=== PATIENT | male | born 1935 | race Caucasian/White ===

== ENCOUNTER 2016-06-01 18:04 | Inpatient (IN) | payer OTHER ==
[~2016-06-01] VITALS: Ht 175.3 cm; Wt 77.2 kg
[~2016-06-01 18:04] MED LIST: AMANTADINE100 MG PO; ASPIRIN ADULT L81 M1 PO; CARDURA8 MG PO; CHOLESTYRAMINE4 GM; CITALOPRAM HYDR20 MG PO; FLORINEF0.1 MG PO; HYDROCHLOROTHIA25 MG PO; KEFLEX500 M1 PO; KLOR-CON M2020 MEQ PO; LIPITOR80 MG PO; LOPRESSOR25 MG PO; LOPRESSOR50 MG PO; METAMUCIL EQUIV1 PKT PO; NITROSTAT0.4 MG SL; OMEGA 31000 MG PO; ROPINIROLE HCL1 MG PO; RYTARY ER; RYTARY PO; TAMSULOSIN HCL0.4 MG PO; TROSPIUM CHLORI20 MG PO; VITAMIN D-31000 UNIT PO
--- NOTE | 2016-06-01 19:52 | ED ORDER SUMMARY ---
..... Patient: URBANO CHANDLER OrderSheet [facility] VisitID: [id number] [place] [address] 80y, M Registration Date/Time: 06/01/2016 ORDER SHEET Weight: 77.1 kg (measured) Allergies: No Known Drug Allergy GENERAL ORDERS: Blood Culture (No) (N/A) Urgent (18:11 06/01/2016 Gabriel JUÁREZ) (18:14 Isra R.N.) Cue Selector (Continuous) (18:12 06/01/2016 Gabriel JUÁREZ) (18:14 Isra R.N.) Chest 1V Urgent (18:12 06/01/2016 Gabriel JUÁREZ) (18:14 Isra R.N.) Cardiac Panel Stat (18:13 06/01/2016 Gabriel JUÁREZ) (18:14 Isra R.N.) UA-Culture if indicated Urgent (18:13 06/01/2016 Gabriel JUÁREZ) (18:14 Isra R.N.) Oxygen (2 L/min) (NC) (18:13 06/01/2016 Gabriel JUÁREZ) (18:14 Isra R.N.) Pulse oximeter (18:13 06/01/2016 Gabriel JUÁREZ) (18:14 Isra R.N.) EKG - ER Stat (18:13 06/01/2016 Gabriel JUÁREZ) (18:24 LTapper) Trevino Catheter (18:13 06/01/2016 Gabriel JUÁREZ) (18:14 Isra R.N.) Lactate, Serum Urgent (19:04 06/01/2016 Gabriel JUÁREZ) (19:06 LTapper) MEDICATION ORDERS: Ibuprofen PO 800 mg (NOW) (20:53 06/01/2016 Isra R.NMaxine verbal order read back to Gabriel JUÁREZ) (20:54 Isra R.N.) IV FLUIDS: IV NS : initial bolus 500 mL (1000 mL/hr), then 250 mL/hr for 4h (NOW); Routine (18:12 06/01/2016 Gabriel JUÁREZ) (18:28 Isra Salgado) Levaquin IV 750 mg/150 mL (NOW) (18:13 06/01/2016 Gabriel JUÁREZ) (18:49 Isra Salgado) IV Saline Lock (18:31 06/01/2016 Isra Salgado verbal order read back to Gabriel JUÁREZ) (18:31 Isra Salgado) ORDER SHEET NOTES: [Electronically signed by Chris Granado R.N. (22:49 06/01/2016)] [Electronically signed by Art Adkins MD (15:18 06/02/2016)] [Electronically locked/signed by Chris Granado R.N. (22:49 06/01/2016)]
--- NOTE | 2016-06-01 19:52 | ED NURSING NOTES ---
Clinical Report - Nurses [facility] [address] [place] [address] 06/01/2016 18:04 [id number] Triage time 18:03 Jun 01 2016. Acuity: LEVEL 3. Chief Complaint: FEVER and CHILLS. Alert. JAYA COMA SCORE: [place] Coma Scale: 15- eyes open spontaneously (4); best verbal response- oriented x 4 (5); best motor response- obeys commands (6). Jaya Coma Scale: 15- eyes open spontaneously (4); best verbal response- oriented x 4 (5); best motor response- obeys commands (6). --18:15 Chris Granado R.N. 18:06 06/01/16. BP: 107/58. HR: 95. RR: 24. O2 saturation: 91% on room air. Temp: 102 F (oral). Pain level now: 0/10. --18:15 Chris Granado R.N. Weight: 77.1 kg measured. Height/Length: 69 inches Estimated. BMI: 25.1. --18:09 Chris Granado R.N. Medications Amantadine HCl Oral (Capsule 100 mg) 1 capsule, 2x a day. Aspirin Oral (Tablet 81 mg) 1 tablet, daily. Atorvastatin Calcium Oral (Tablet 80 mg) 1 tablet, daily. Cholestyramine Oral (Packet 4 gm) 1 packet, daily. Citalopram Hydrobromide Oral (Tablet 20 mg) 1 tablet, daily. Hydrochlorothiazide Oral (Tablet 25 mg) 1 tablet, daily. Metoprolol Tartrate Oral (Tablet 50 mg) 1 tablet, 2 times daily. --18:18 Chris Granado R.N. Nitroglycerin Sublingual (Tablet Sublingual 0.4 mg) 1 tablet, 3x a day as needed. ROPINIRole HCl Oral (Tablet 2 mg) 1 tablet, 5 x daily. Rytary 36.25-145 mg. Tamsulosin HCl Oral (Capsule 0.4 mg) 1 capsule, daily. Trospium Chloride Oral (Tablet 20 mg) 1 tablet, twice daily. --18:18 Chris Granado R.N. Allergies No Known Drug Allergy. --18:18 Chris Granado R.N. History Arrived by EMS. Historian: patient. Unaccompanied. ( Fever associated with anuria, tachycardia, tachypnea. Recent hx UTI. CODE SEPSIS CALLED). This started today. Treatment SAW HANDLE ASSEMBLER: (EMS started IV (LAC) in the field and started IV fluids.). --18:15 Chris Granado R.N. PROBLEMS: CVA - Cerebrovascular Accident. Prior Injury, Same Area. Pressure Ulcer. Wound to rt foot . Constipation. Hypovolemia. Hypotension. Syncope. Renal Insufficiency. UTI - Urinary Tract Infection. Urinary Retention. Immunizations. Hypercholesterolemia. Parkinson's Disease. Hypertension. --18:16 Chris Granado R.N. 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 Vasectomy. --18:16 Chris Granado R.N. Interventions ID band on patient. To treatment room. --18:15 Chris Granado R.N. NURSING PROGRESS NOTES 18:20. Patient ID band checked for patient name, birthdate and medical record number: patient confirmed. Catheterized urine collected with return of yellow-colored cloudy urine, sediment noted; sample sent to lab for urinalysis and culture. Specimen labeled in the presence of the patient. --18:26 Chris Granado R.N. 18:03 06/01/2016 Site #1 started prior to arrival by EMS via IV in the left antecubital space with an 18g angiocath ([facility] START BY ems). --18:28 Chris Granado R.N. <<IVANKEN ENTRY-- 18:03 06/01/2016 Started bag #1 1000 mL IV Fluids IV NS (Saline); at 125 mL/hr over 8 hour(s) via site #1 via IV pump. Allergies verified and confirmed 5 rights. IV patency established. IV site checked: no pain, redness, or swelling. IV flushed thoroughly pre- and post-medication administration. --18:28 Chris Granado R.N. --END STRIKE>> Correction. --20:56 Chris Granado R.N. 18:15 06/01/16. 14 fr diaz catheter placed. During procedure hand hygiene observed and sterile equipment and aseptic technique used. Return of 450 mL yellow-colored cloudy urine, sediment noted; attached to bedside drainage bag positioned below the bladder. He tolerated procedure well. --18:26 Chris Granado R.N. 18:15 06/01/2016 Site #2 started via IV in the right forearm with an 18g angiocath, with aseptic technique and good blood return; one attempt. Blood drawn: rainbow set. Labeled in the presence of the patient and sent to the lab. Saline lock flushed with 10 mL saline (by AFUA Metcalf). --18:30 Chris Granado R.N. EKG time: (18:17). EKG was performed by a tech and shown to the ED physician. --18:51 Hannah Sung 18:35 06/01/16. ( Blood Culture x 1 and Lactate drawn by Junior Systems Engineer.). --18:55 Chris Granado R.N. 18:39 06/01/2016 Started 750 mg of Levaquin (Levofloxacin) IVPB in bag #1 150 mL; at 100 mL/hr over 90 minute(s) via site #1 via IV pump. Allergies verified and confirmed 5 rights. IV patency established. IV site checked: no pain, redness, or swelling. IV flushed thoroughly pre- and post-medication administration. --18:49 Chris Granado R.N. 19:15 06/01/16. BP: 134/62. HR: 92 (regular and normal rate). RR: 18. O2 saturation: 99% on nasal cannula at 2 liters/minute. Pain level now: 0/10. --19:17 Chris Granado R.N. <<STRICKEN ENTRY-- 18:03 06/01/2016 Started bag #1 1000 IV Fluids IV NS (Saline); at 250 mL/hr over 2 hour(s) via site #1 via IV pump. Allergies verified and confirmed 5 rights. IV patency established. IV site checked: no pain, redness, or swelling. IV flushed thoroughly pre- and post-medication administration. --20:56 Chris Granado R.N. --END STRIKE>> Correction. --20:57 Chris Granado R.N. 18:03 06/01/2016 Started bag #1 1000 mL IV Fluids IV NS (Saline); at 250 mL/hr over 2 hour(s) via site #1 via IV pump. Allergies verified and confirmed 5 rights. IV patency established. IV site checked: no pain, redness, or swelling. IV flushed thoroughly pre- and post-medication administration (Medics had infused 500 mL of IV bag # 1 in field). --20:57 Chris Granado R.N. 20:07 06/01/2016 IV Fluids IV NS Bag Change: bag #1 infused. Total amount infused: 1000. STARTED bag #2 (250 mL) at 250 mL/hr via IV pump. Confirmed 5 rights. IV patency established. IV site checked: no pain, redness, or swelling. IV flushed thoroughly. --22:07 Chris Granado R.N. 20:16 06/01/2016 Levaquin IVPB Discontinued: bag #1 infused. Total amount infused: 150mL mL. IV patency established. IV site checked: no pain, redness, or swelling. IV flushed thoroughly. (Levaquin 750 mg). --20:26 Chris Granado R.N. 20:30 06/01/2016 Site #1 removed. Catheter intact. Pressure dressing, bandaid and bandage applied (site infiltrated probably due to pt's shakiness/Parkinsons and the IV solution was moved to site #2). --22:42 Chris Granado R.N. 20:39 06/01/2016 Ibuprofen PO 800 mg given. Allergies verified and confirmed 5 rights. --20:54 Chris Granado R.N. <<STRICKEN ENTRY-- 21:00 06/01/2016 Site #1 removed. Catheter intact. Pressure dressing, bandaid and bandage applied (site infiltrated probably due to pt's shakiness/Parkinsons and the IV solution was moved to site #2). --22:18 Chris Granado R.N. --END STRIKE>> Correction. --22:41 Chris Granado R.N. 21:00 06/01/2016 Site #[address] upon admission; no pain and no signs of infection or infiltration. No blood return present (IV infusing in this site). --22:40 Chris Granado R.N. 21:00 06/01/2016 IV Fluids IV NS Continued: upon discharge at the rate of 250 mL/hr. 750 mL remaining bag #2. IV patency established. IV site checked: no pain, redness, or swelling. IV flushed thoroughly. --22:39 Chris Granado R.N. <<STRICKEN ENTRY-- 21:30 06/01/2016 Site #[address] upon admission; no pain and no signs of infection or infiltration. No blood return present (IV infusing in this site). --22:19 Chris Granado R.N. --END STRIKE>> Correction. --22:40 Chris Granado R.N. <<STRICKEN ENTRY-- 21:30 06/01/2016 IV Fluids IV NS Continued: upon discharge at the rate of 250 mL/hr. 750 mL remaining bag #2. IV patency established. IV site checked: no pain, redness, or swelling. IV flushed thoroughly. --22:16 Chris Granado R.N. --END STRIKE>> Correction. --22:39 Chris Granado R.N. <<STRICKEN ENTRY-- 22:41 06/01/2016 Site #1 removed. Catheter intact. Pressure dressing, bandaid and bandage applied (site infiltrated probably due to pt's shakiness/Parkinsons and the IV solution was moved to site #2). --22:41 Chris Granado R.N. --END STRIKE>> Correction. --22:42 Chris Granado R.N. 20:00 06/01/16. BP: 108/59. HR: 89. RR: 24. O2 saturation: 98% on nasal cannula at 2 liters/minute. Pain level now: 0/10. --22:45 Chris Granado R.N. 20:30 06/01/16. BP: 119/67. HR: 90. RR: 20. O2 saturation: 98%. Pain level now: 0/10. --22:48 Chris Granado R.N. DISPOSITION / DISCHARGE Departure time: 2100. --22:35 Chris Granado R.N. 20:45 06/01/16. BP: 109/66. HR: 92. RR: 20. O2 saturation: 98% on nasal cannula at 2 liters/minute. Temp: 99.9 F (oral). Pain level now: 0/10. --22:37 Chris Granado R.N. 21:00. Admitted to Acute Care. Transported via stretcher by nurse with IV and O2. Report was given to a nurse via a phone call. All questions were answered. Report was acknowledged. (AFUA Box). --22:38 Chris Granado R.N. Locked/Released at 06/01/2016 22:49 by Chris Granado R.N.
--- NOTE | 2016-06-01 19:52 | ED CLINICAL REPORT ---
Clinical Report - Physicians/Mid Levels [facility] [address] [place] [address] 06/01/2016 18:04 Patient: URBANO CHANDLER Time Seen: 18:10 Jun 01 2016. Arrived- By ambulance. Historian- patient and EMS personnel. CPT: ER phys charges level 5 plus (#[id number]). EKG interpretation (#[id number]). HISTORY OF PRESENT ILLNESS Chief Complaint: Code Sepsis. ( snf staff states the patient has been febrile today and worry about sepsis. He is more confused than normal. He has had some hypoxia and tachycardia. They note there is been no urine output today. That the patient had been treated for a UTI about a month ago. Patient indicates he has a slight cough. No abdominal pain no diarrhea. One episode of vomiting. No rash and no new areas of pain.). This started today and is still present. At its maximum, severity described as moderate. When seen in the E.D., severity described as moderate. Modifying factors. Not worsened by anything. Not relieved by anything. The patient has had fatigue, decreased urine output and weakness. Similar symptoms previously: None. Recent medical care: Not recently seen/assessed. REVIEW OF SYSTEMS The patient has had fever, a cough, chills, difficulty with urination (low output), and weakness. No sore throat or throat, sinus drainage, nasal congestion or difficulty breathing. No chest pain, abdominal pain, nausea, vomiting or diarrhea. No black stools, bloody stools, skin rash, back pain or blackouts. No diabetic symptoms or easy bruising. The patient has had difficulty with ambulation. He has had difficulty walking. All systems otherwise negative, except as recorded above. PAST HISTORY CVA - Cerebrovascular Accident. Prior Injury, Same Area. Pressure Ulcer. Wound to rt foot . Constipation. Hypovolemia. Hypotension. Syncope. Renal Insufficiency. UTI - Urinary Tract Infection. Urinary Retention. Immunizations. Hypercholesterolemia. Parkinson's Disease. Hypertension. 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 Vasectomy. Medications: Nitroglycerin Sublingual (Tablet Sublingual 0.4 mg) 1 tablet, 3x a day as needed. ROPINIRole HCl Oral (Tablet 2 mg) 1 tablet, 5 x daily. Rytary 36.25-145 mg. Tamsulosin HCl Oral (Capsule 0.4 mg) 1 capsule, daily. Trospium Chloride Oral (Tablet 20 mg) 1 tablet, twice daily. Amantadine HCl Oral (Capsule 100 mg) 1 capsule, 2x a day. Aspirin Oral (Tablet 81 mg) 1 tablet, daily. Atorvastatin Calcium Oral (Tablet 80 mg) 1 tablet, daily. Cholestyramine Oral (Packet 4 gm) 1 packet, daily. Citalopram Hydrobromide Oral (Tablet 20 mg) 1 tablet, daily. Hydrochlorothiazide Oral (Tablet 25 mg) 1 tablet, daily. Metoprolol Tartrate Oral (Tablet 50 mg) 1 tablet, 2 times daily. Allergies: No Known Drug Allergy. SOCIAL HISTORY No alcohol use or drug use. ADDITIONAL NOTES The nursing notes have been reviewed. PHYSICAL EXAM Vital Signs: 06/01/2016 18:06 BP: 107/58. HR: 95. RR: 24. O2 saturation: 91%. Temp: 102 F. Pain level now: 0/10. Appearance: Alert. No acute distress. Lethargic. Eyes: Pupils equal, round and reactive to light. Pale conjunctivae. Eyes normal inspection. ENT: Ears normal. Nose normal. Dry mucous membranes present. Pharynx normal. Neck: Normal inspection. Neck supple. No meningeal signs. CVS: Normal heart rate and rhythm. 2/6 systolic ejection murmur. Pulses normal. Respiratory: No respiratory distress. Rales in the left lung base posteriorly. Chest nontender. Abdomen: No visible injury. Soft and nontender. Bowel sounds normal. Back: Normal inspection. Skin: Skin warm. Normal skin color. No rash. Extremities: Extremities exhibit normal ROM. No lower extremity edema. Neuro: No motor deficit. No sensory deficit. Reflexes normal. LABS, X-RAYS, AND EKG EKG: Normal sinus rhythm. Normal P waves. Normal QRS complex. Normal axis. Normal ST and T waves. The study has been interpreted contemporaneously. The study has been independently viewed by me. The EKG appears to be a good tracing. Chest X-ray: (CABG changes. Question of retrocardiac infiltrate.). Views: AP (portable). Technique: good. The X-rays were independently viewed by me and interpreted contemporaneously by me. Laboratory Tests: UA-Culture if indicated: (ALANNA: 06/01/2016 18:24) ( MsgRcvd 06/01/2016 18:58) Final results Test Result Flag Units (Reference) URINE COLOR YELLOW URINE APPEARANCE SL CLOUDY URINE GLUCOSE NEGATIVE (NEGATIVE) URINE BILIRUBIN NEGATIVE (NEGATIVE) URINE KETONE NEGATIVE (NEGATIVE) URINE SPECIFIC GRAVITY 1.020 (1.010-1.030) URINE PH 6.5 (5.0-8.0) URINE PROTEIN 1+ (NEGATIVE) URINE UROBILINOGEN 1.0 EU/dL (0.2-1.0) URINE NITRITE NEGATIVE (NEGATIVE) URINE BLOOD 2+ (NEGATIVE) URINE LEUK ESTERASE POSITIVE (NEGATIVE) URINE RBC NONE SEEN rbc/hpf (0-1) URINE WBC >100 wbc/hpf (0-1) URINE EPITHELIAL CELLS RARE EPI/hpf (0-5) URINE BACTERIA MANY (4+) (NONE SEEN) URINE COMMENT CULTURE INDICATED URINE CULTURES ARE SET-UP BASED ON THE FOLLOWING CRITERIA:POSITIVE NITRITEPOSITIVE LEUKOCYTE ESTERASEGREATER THAN 10 WHITE BLOOD CELLSMODERATE (2+) OR GREATER BACTERIA CBC w Diff: (ALANNA: 06/01/2016 18:15) ( MsgRcvd 06/01/2016 18:32) Final results Test Result Flag Units (Reference) WHITE BLOOD COUNT 13.9 H K/uL (4.5-11.5) RED BLOOD COUNT 3.80 L M/uL (4.50-5.90) HEMOGLOBIN 11.4 L gm/dL (13.5-17.5) HEMATOCRIT 34.6 L % (41.0-53.0) MEAN CELL VOLUME 91 fL (80-100) MEAN CORPUSCULAR HGB 30 pg (26-34) MEAN CORPUSCULAR HGB CONC 33 g/dL (31-37) RED CELL DISTRIBUTION WIDTH 16.0 H % (11.6-14.8) PLATELET COUNT 101 L K/uL (150-400) NEUTROPHIL % 90.3 H % (50-75) LYMPH % 4.8 L % (25-40) MONO % 4.8 % (3-14) EOSINOPHIL % 0 % (0-4) BASOPHIL % 0.1 % (0-2) Lactate, Serum: (ALANNA: 06/01/2016 18:15) ( MsgRcvd 06/01/2016 19:40) Final results Test Result Flag Units (Reference) LACTIC ACID 1.2 mmol/L (0.4-2.0) CHEM 13 PANEL: (ALANNA: 06/01/2016 18:15) ( MsgRcvd 06/01/2016 19:00) Final results Test Result Flag Units (Reference) GLUCOSE 140 H mg/dL (70-110) BUN 16 mg/dL (7-18) CREATININE 1.1 mg/dL (0.6-1.3) Estimated GFR >60 mL/min Estimated GFR- >60 mL/min Note: Persistent reduction over 3 months in eGFR<60 mL/min/1.73 m2 defines CKD. Patients with eGFR values>=60 mL/min/1.73 m2 may also have CKD if evidence ofpersistent proteinuria. Additional information may be foundat www.kidney.org. SODIUM 140 mmol/L (136-145) POTASSIUM 3.2 L mmol/L (3.5-5.1) CHLORIDE 103 mmol/L (98-107) CARBON DIOXIDE 30 mmol/L (21-32) CALCIUM 8.1 L mg/dL (8.5-10.1) TOTAL PROTEIN 6.3 L g/dL (6.4-8.2) ALBUMIN 2.6 L g/dL (3.3-5.0) BILIRUBIN, TOTAL 1.2 H mg/dL (0.0-1.0) ALKALINE PHOSPHATASE 72 U/L (46-116) AST (SGOT) 13 L U/L (15-37) ALT (SGPT) 22 U/L (12-78) MAGNESIUM 1.5 L mg/dL (1.8-2.4) CPK 60 U/L (24-260) TROPONIN I 0.06 ng/mL (0.00-1.5) TROPONIN REFERENCE RANGE:<0.1 NEGATIVE0.1-1.5 INDETERMINANT>1.5 POSITIVE . PROGRESS AND PROCEDURES Course of Care: IV NS BC times 2 Levaquin 750 mg IV. Discussed case with on-call health care provider, (Isabel). Reviewed test results. Agreed upon treatment plan. Health care provider will see patient in hospital. Patient/family counseled. Old medical records ordered. Disposition orders written. Disposition: Admitted to Acute Care. CLINICAL IMPRESSION Pneumonia UTI with early sepsis Dehydration. INSTRUCTIONS Your Current Medications: CONTINUE TAKING THE FOLLOWING MEDICATIONS: Amantadine HCl Oral : Capsule 100 mg, 1 capsule 2x a day. Aspirin Oral : Tablet 81 mg, 1 tablet daily. Atorvastatin Calcium Oral : Tablet 80 mg, 1 tablet daily. Cholestyramine Oral : Packet 4 gm, 1 packet daily. Citalopram Hydrobromide Oral : Tablet 20 mg, 1 tablet daily. Hydrochlorothiazide Oral : Tablet 25 mg, 1 tablet daily. Metoprolol Tartrate Oral : Tablet 50 mg, 1 tablet 2 times daily. Nitroglycerin Sublingual : Tablet Sublingual 0.4 mg, 1 tablet 3x a day, prn. ROPINIRole HCl Oral : Tablet 2 mg, 1 tablet 5 x daily. Rytary* : 36.25-145 mg. Tamsulosin HCl Oral : Capsule 0.4 mg, 1 capsule daily. Trospium Chloride Oral : Tablet 20 mg, 1 tablet twice daily. Understanding of the discharge instructions verbalized by patient. (Electronically signed by Art Adkins MD 06/02/2016 15:18)
--- NOTE | 2016-06-01 19:52 | ED ORDER SUMMARY ---
..... Patient: URBANO CHANDLER OrderSheet [facility] VisitID: [id number] [place] [address] 80y, M Registration Date/Time: 06/01/2016 ORDER SHEET Weight: 77.1 kg (measured) Allergies: No Known Drug Allergy GENERAL ORDERS: Blood Culture (No) (N/A) Urgent (18:11 06/01/2016 Gabriel JUÁREZ) (18:14 Isra R.N.) General Manager Food (Continuous) (18:12 06/01/2016 Gabriel JUÁREZ) (18:14 Isra R.N.) Chest 1V Urgent (18:12 06/01/2016 Gabriel JUÁREZ) (18:14 Isra R.N.) Cardiac Panel Stat (18:13 06/01/2016 Gabriel JUÁREZ) (18:14 Isra R.N.) UA-Culture if indicated Urgent (18:13 06/01/2016 Gabriel JUÁREZ) (18:14 Isra R.N.) Oxygen (2 L/min) (NC) (18:13 06/01/2016 Gabriel JUÁREZ) (18:14 Isra R.N.) Pulse oximeter (18:13 06/01/2016 Gabriel JUÁREZ) (18:14 Isra R.N.) EKG - ER Stat (18:13 06/01/2016 Gabriel JUÁREZ) (18:24 LTapper) Trevino Catheter (18:13 06/01/2016 Gabriel JUÁREZ) (18:14 Isra R.N.) Lactate, Serum Urgent (19:04 06/01/2016 Gabriel JUÁREZ) (19:06 LTapper) MEDICATION ORDERS: Ibuprofen PO 800 mg (NOW) (20:53 06/01/2016 Isra R.NMaxine verbal order read back to Gabriel JUÁREZ) (20:54 Isra R.N.) IV FLUIDS: IV NS : initial bolus 500 mL (1000 mL/hr), then 250 mL/hr for 4h (NOW); Routine (18:12 06/01/2016 Gabriel JUÁREZ) (18:28 Isra Salgado) Levaquin IV 750 mg/150 mL (NOW) (18:13 06/01/2016 Gabriel JUÁREZ) (18:49 Isra Salgado) IV Saline Lock (18:31 06/01/2016 Isra Salgado verbal order read back to Gabriel JUÁREZ) (18:31 Isra Salgado) ORDER SHEET NOTES: [Electronically signed by Chris Granado R.N. (22:49 06/01/2016)] [Electronically signed by Art Adkins MD (15:18 06/02/2016)] [Electronically locked/signed by Chris Granado R.N. (22:49 06/01/2016)]
--- NOTE | 2016-06-01 20:05 | DIAGNOSTIC IMAGING REPORT ---
PROCEDURE: XR CHEST 1 VIEW INDICATION: FEVER, initial encounter TECHNIQUE: Portable AP view 06:33 p.m. COMPARISON: Chest x-ray 12/09/2013 FINDINGS: Lungs are clear. Median sternotomy and CABG. Heart size, mediastinum and pulmonary vessels are normal. Thorax is normal. IMPRESSION: 1. No acute changes 2. CABG
[2016-06-01 21:30] VITALS: BP 131/74
[2016-06-01 23:18] VITALS: BP 130/72
--- NOTE | 2016-06-02 00:26 | HISTORY AND PHYSICAL ---
ADMITTED: 06/01/2016 HISTORY OF PRESENT ILLNESS: The patient is a 80-year-old male with a history of Parkinson's disease, hypertension, hypercholesterolemia, coronary artery disease status post coronary artery bypass grafting, recurrent urinary tract infection, who was brought in from [facility] because of fever. He allegedly had a temperature up to 103 this morning and was also noted to be confused. He was allegedly tachypneic and tachycardic. The patient is not a very good historian. He denies having any cough, shortness of breath, abdominal pain, nausea, or vomiting. He denies having any urinary symptoms. The patient apparently was noted to have decreased urine output. The patient was evaluated in the emergency department where he was noted to have an elevated white count of 13.9. Urine showed positive leukocyte esterase, greater than 100 WBC and many bacteria. MEDICAL/SURGICAL HISTORY: The patient's past medical history includes a history of recurrent urinary tract infections and prior urinary tract infection. Last urine culture in 10/2015 showed growth of Citrobacter, sensitive to most antibiotics. He also has a history of Parkinson's disease with history of coronary artery disease status post coronary artery bypass graft in 2001, history of hypertension, hypercholesterolemia, benign prostatic hypertrophy. Prior surgeries include hernia repair, quadruple bypass in 2001, and a history of vasectomy. MEDICATIONS: 1. Amantadine 100 mg twice daily. 2. Aspirin 81 mg daily. 3. Atorvastatin 80 mg daily. 4. Cholestyramine 4 g daily. 5. Citalopram 20 mg daily. 6. Hydrochlorothiazide 25 mg daily. 7. Metoprolol 50 b.i.d. 8. Nitroglycerin 0.4 mg sublingual p.r.n. chest pain. 9. Ropinirole 2 mg 5 times daily. 10. Tamsulosin 0.4 mg daily. 11. Trospium 20 mg twice daily. 12. He was previously on Rytary 36.25/145 mg- patient is no longer taking this medication ALLERGIES: 1. NONE. SOCIAL HISTORY: He is . He has been residing at [facility] since November. He had no history of alcohol, drug, or smoking. FAMILY HISTORY: Noncontributory, considering his age. CODE STATUS: DO NOT RESUSCITATE. DO NOT INTUBATE. POLST FORM WAS REVIEWED. PRIMARY CARE PHYSICIAN: Seen by Dr. Ross at [facility]. REVIEW OF SYSTEMS: The rest of the review of systems could not be obtained. PHYSICAL EXAMINATION: GENERAL: Shows a well-developed, well-nourished male. VITAL SIGNS: Blood pressure 107/58, heart rate 95, respirations 24, O2 saturations 91% on room air, temperature is 100.2, weight is 77.1 kg. Height is 69 inches, BMI is 25.1. HEENT: He is normocephalic with pink conjunctivae. Anicteric. Pupils are reactive with dry oral mucosa. NECK: No JVD. No bruits. LUNGS: Good air entry bilaterally. No rales, no wheezes, no rhonchi. No use of accessory muscles with respiration. CARDIOVASCULAR: Regular rate and rhythm. S1, S2 normal. He has a systolic murmur at left upper and lower sternal border about 3/6, no S4. No heaves. No S3 noted. ABDOMEN: Soft, nontender, normoactive bowel sounds. No guarding. EXTREMITIES: No cyanosis, no edema. Peripheral pulses are palpable. He has a few abrasions on the right silva. NEUROLOGIC: Motor strength 5/5 in all extremities. No sensory deficits. DTRs are +2. He has resting tremors on the upper extremities. He has cogwheeling noted on the upper extremities Mild bradykinesia noted. Memory is intact. He has good insight and judgement. Affect is normal. No lateralizing signs noted. LAB/IMAGING: His chest x-ray shows status post bypass changes, but no infiltrates. His labs include a hemoglobin of 11.4, hematocrit 34.6, WBC of 13.9, platelets of 101, neutrophils 90.3, lymphocytes 4.8. His sodium is 140, potassium 3.2, chloride 103, CO2 30, BUN of 16, creatinine 1.1, glucose 140, magnesium 1.5, calcium 8.1, total protein 6.3, albumin 2.6, total bilirubin of 1.1, alkaline phosphatase 72, AST 13, ALT 22. CPK 60, troponin is 0.06. Lactic acid is 1.2. UA shows specific gravity 1.02, positive leukocyte esterase, greater than 100 WBC, many bacteria. IMPRESSION: 1. Urinary tract infection, rule out urosepsis 2. Parkinson's disease 3. History of coronary artery disease 4. Hypokalemia and hypomagnesemia 5. Thrombocytopenia PLAN: Admit to AC inpatient. We will hydrate slowly with fluids, would be careful with too much fluids because he may have a history of heart failure. We will empirically start on Levaquin 750 mg IV daily. We will replace potassium and magnesium. We will resume his medications for Parkinson's, hypertension, hypercholesterolemia and coronary artery diseasae As far as his thrombocytopenia is concerned, this appears to be chronic and stable. will continue to monitor platelet count. Hold pharmacologic dvt prophylaxis if platelet count falls below 70. Plan of care discussed with the patient and his son.
--- NOTE | 2016-06-02 00:29 | HISTORY AND PHYSICAL ---
ADMITTED: 06/01/2016 ADDENDUM CHIEF COMPLAINT: 1. Thrombocytopenia. The patient has a platelet of 101. PLAN: We will repeat platelet count in a.m. Etiology unclear. We will need to monitor platelets, especially if he getting any heparin or Lovenox for deep venous thrombosis prophylaxis.
[2016-06-02 04:10] VITALS: BP 116/63
[2016-06-02 06:22] VITALS: BP 113/68
[2016-06-02 10:34] VITALS: BP 133/66
[2016-06-02 14:09] VITALS: BP 141/82
--- NOTE | 2016-06-02 15:18 | ED MED RECONCILIATION SUMMARY ---
Patient: URBANO CHANDLER Medication Reconciliation Report [facility] VisitID: [id number] [place] [address] 80y, M Registration Date/Time: 06/01/2016 Weight: 77.1 kg Height/Length: 69 in. BMI: 25.1 ALLERGIES: No Known Drug Allergy The patient's Home Medications are listed below: CONTINUE TAKING THE FOLLOWING MEDICATIONS: Amantadine HCl Oral (100 mg) 1 capsule, 2x a day Aspirin Oral (81 mg) 1 tablet, daily Atorvastatin Calcium Oral (80 mg) 1 tablet, daily Cholestyramine Oral (4 gm) 1 packet, daily Citalopram Hydrobromide Oral (20 mg) 1 tablet, daily Hydrochlorothiazide Oral (25 mg) 1 tablet, daily Metoprolol Tartrate Oral (50 mg) 1 tablet, 2 times daily Nitroglycerin Sublingual (0.4 mg) 1 tablet, 3x a day ROPINIRole HCl Oral (2 mg) 1 tablet, 5 x daily Rytary 36.25-145 mg Tamsulosin HCl Oral (0.4 mg) 1 capsule, daily Trospium Chloride Oral (20 mg) 1 tablet, twice daily The source(s) of the original Home Medication information: Not obtained. The following Medications were given to the patient in the Emergency Department: IV NS IV Fluids bolus 0, then 250 mL/hr, administered: 06/01/2016 6:03:00 PM Levaquin [IVPB] IVPB bolus 0, then 750 mg 100 mL/hr, administered: 06/01/2016 6:39:00 PM Ibuprofen [PO] PO 800 mg, administered: 06/01/2016 8:39:00 PM The following Medications were prescribed to the patient: None.
--- NOTE | 2016-06-02 15:18 | ED MED RECONCILIATION SUMMARY ---
Patient: URBANO CHANDLER Medication Reconciliation Report [facility] VisitID: [id number] [place] [address] 80y, M Registration Date/Time: 06/01/2016 Weight: 77.1 kg Height/Length: 69 in. BMI: 25.1 ALLERGIES: No Known Drug Allergy The patient's Home Medications are listed below: CONTINUE TAKING THE FOLLOWING MEDICATIONS: Amantadine HCl Oral (100 mg) 1 capsule, 2x a day Aspirin Oral (81 mg) 1 tablet, daily Atorvastatin Calcium Oral (80 mg) 1 tablet, daily Cholestyramine Oral (4 gm) 1 packet, daily Citalopram Hydrobromide Oral (20 mg) 1 tablet, daily Hydrochlorothiazide Oral (25 mg) 1 tablet, daily Metoprolol Tartrate Oral (50 mg) 1 tablet, 2 times daily Nitroglycerin Sublingual (0.4 mg) 1 tablet, 3x a day ROPINIRole HCl Oral (2 mg) 1 tablet, 5 x daily Rytary 36.25-145 mg Tamsulosin HCl Oral (0.4 mg) 1 capsule, daily Trospium Chloride Oral (20 mg) 1 tablet, twice daily The source(s) of the original Home Medication information: Not obtained. The following Medications were given to the patient in the Emergency Department: IV NS IV Fluids bolus 0, then 250 mL/hr, administered: 06/01/2016 6:03:00 PM Levaquin [IVPB] IVPB bolus 0, then 750 mg 100 mL/hr, administered: 06/01/2016 6:39:00 PM Ibuprofen [PO] PO 800 mg, administered: 06/01/2016 8:39:00 PM The following Medications were prescribed to the patient: None.
--- NOTE | 2016-06-02 15:18 | ED MAR SUMMARY ---
..... Medication Administration Record [facility] [address] [place] [address] Patient: URBANO CHANDLER Visit ID: [id number] 80y, M Weight: 77.1 kg Height/Length: 69 in BMI: 25.1 ALLERGIES: No Known Drug Allergy Start 18:03 06/01/2016 Chris Granado R.N., Continued Upon Discharge 21:00 06/01/2016 Chris Granado R.N. Medication Administered: IV NS (SALINE), Dose: IV Fluids over 2 hour(s), Rate: 250 mL/hr, Dispensed: 1000 mL bag, Site: #1 left AC. Medication Ordered: IV NS : initial bolus 500 mL (1000 mL/hr), then 250 mL/hr for 4h (NOW); Routine. Start 18:39 06/01/2016 Chris Granado R.N., Stop 20:16 06/01/2016 Chris Granado R.N. Medication Administered: LEVAQUIN [IVPB] (LEVOFLOXACIN), Dose: 750 mg IVPB over 90 minute(s), Rate: 100 mL/hr, Dispensed: 150 mL bag, Site: #1 left AC. Medication Ordered: Levaquin IV 750 mg/150 mL (NOW). Given 20:39 06/01/2016 Chris Granado R.N. Medication Administered: IBUPROFEN [PO], Dose: 800 mg PO. Medication Ordered: Ibuprofen PO 800 mg (NOW).
--- NOTE | 2016-06-02 15:18 | ED MAR SUMMARY ---
..... Medication Administration Record [facility] [address] [place] [address] Patient: URBANO CHANDLER Visit ID: [id number] 80y, M Weight: 77.1 kg Height/Length: 69 in BMI: 25.1 ALLERGIES: No Known Drug Allergy Start 18:03 06/01/2016 Chris Granado R.N., Continued Upon Discharge 21:00 06/01/2016 Chris Granado R.N. Medication Administered: IV NS (SALINE), Dose: IV Fluids over 2 hour(s), Rate: 250 mL/hr, Dispensed: 1000 mL bag, Site: #1 left AC. Medication Ordered: IV NS : initial bolus 500 mL (1000 mL/hr), then 250 mL/hr for 4h (NOW); Routine. Start 18:39 06/01/2016 Chris Granado R.N., Stop 20:16 06/01/2016 Chris Granado R.N. Medication Administered: LEVAQUIN [IVPB] (LEVOFLOXACIN), Dose: 750 mg IVPB over 90 minute(s), Rate: 100 mL/hr, Dispensed: 150 mL bag, Site: #1 left AC. Medication Ordered: Levaquin IV 750 mg/150 mL (NOW). Given 20:39 06/01/2016 Chris Granado R.N. Medication Administered: IBUPROFEN [PO], Dose: 800 mg PO. Medication Ordered: Ibuprofen PO 800 mg (NOW).
--- NOTE | 2016-06-02 15:18 | ED DISCHARGE INSTRUCTIONS ---
Patient: URBANO CHANDLER General Instructions [facility] VisitID: [id number] [place] [address] 80y, M Registration Date/Time: 06/01/2016 Pneumonia UTI with early sepsis Dehydration. INSTRUCTIONS Your Current Medications: CONTINUE TAKING THE FOLLOWING MEDICATIONS: Amantadine HCl Oral : Capsule 100 mg, 1 capsule 2x a day. Aspirin Oral : Tablet 81 mg, 1 tablet daily. Atorvastatin Calcium Oral : Tablet 80 mg, 1 tablet daily. Cholestyramine Oral : Packet 4 gm, 1 packet daily. Citalopram Hydrobromide Oral : Tablet 20 mg, 1 tablet daily. Hydrochlorothiazide Oral : Tablet 25 mg, 1 tablet daily. Metoprolol Tartrate Oral : Tablet 50 mg, 1 tablet 2 times daily. Nitroglycerin Sublingual : Tablet Sublingual 0.4 mg, 1 tablet 3x a day, prn. ROPINIRole HCl Oral : Tablet 2 mg, 1 tablet 5 x daily. Rytary* : 36.25-145 mg. Tamsulosin HCl Oral : Capsule 0.4 mg, 1 capsule daily. Trospium Chloride Oral : Tablet 20 mg, 1 tablet twice daily. Understanding of the discharge instructions verbalized by patient. (Electronically signed by Art Adkins MD 06/02/2016 15:18)
--- NOTE | 2016-06-02 15:18 | ED DISCHARGE INSTRUCTIONS ---
Patient: URBANO CHANDLER General Instructions [facility] VisitID: [id number] [place] [address] 80y, M Registration Date/Time: 06/01/2016 Pneumonia UTI with early sepsis Dehydration. INSTRUCTIONS Your Current Medications: CONTINUE TAKING THE FOLLOWING MEDICATIONS: Amantadine HCl Oral : Capsule 100 mg, 1 capsule 2x a day. Aspirin Oral : Tablet 81 mg, 1 tablet daily. Atorvastatin Calcium Oral : Tablet 80 mg, 1 tablet daily. Cholestyramine Oral : Packet 4 gm, 1 packet daily. Citalopram Hydrobromide Oral : Tablet 20 mg, 1 tablet daily. Hydrochlorothiazide Oral : Tablet 25 mg, 1 tablet daily. Metoprolol Tartrate Oral : Tablet 50 mg, 1 tablet 2 times daily. Nitroglycerin Sublingual : Tablet Sublingual 0.4 mg, 1 tablet 3x a day, prn. ROPINIRole HCl Oral : Tablet 2 mg, 1 tablet 5 x daily. Rytary* : 36.25-145 mg. Tamsulosin HCl Oral : Capsule 0.4 mg, 1 capsule daily. Trospium Chloride Oral : Tablet 20 mg, 1 tablet twice daily. Understanding of the discharge instructions verbalized by patient. (Electronically signed by Art Adkins MD 06/02/2016 15:18)
--- NOTE | 2016-06-02 17:17 | Progress Note ---
See Addendum Subjective General Feels slightly improved from yesterday, but per family, still confused. Has increased nausea/vomiting for several months after meals. On-going diarrhea for 1+ years. Blu walks with walker at nursing at baseline and currently too weak to ambulate. No chest pain, SOB, cough, abd pain. Physical Exam Vital Signs / I&Os Vital Signs Date Time Temp Pulse Resp B/P Pulse O2 O2 Flow FiO2 Ox Delivery Rate 06/02 1630 Nasal 2.0 Cannula 06/02 1409 36.6 82 18 141/82 99 Nasal 2.0 Cannula 06/02 1034 36.9 68 18 133/66 98 Nasal 2.0 Cannula 06/02 0930 2.0 06/02 0854 2.0 06/02 0800 2.0 06/02 0622 36.9 75 18 113/68 92 Room Air 06/02 0410 36.1 81 20 116/63 96 Nasal 2.0 Cannula 06/02 0015 Nasal 2.0 Cannula 06/01 2318 36.9 97 20 130/72 99 Nasal 2.0 Cannula 06/01 2130 36.8 93 20 131/74 98 Nasal 2.0 Cannula I&O 06/02 0000 06/01 1600 06/01 0800 Intake Total Output Total Balance General Appearance Alert, Cooperative, No acute distress Lungs Clear to auscultation, Normal air movement Cardiovascular Regular rate and rhythm, Normal S1 and S2, 2/6 crescendo murmur increased at base. Abdomen Normal bowel sounds, Soft, No tenderness Extremities Trace edema bilaterally lower extremity Assessment and Plan Problem List 1. UTI (urinary tract infection) Status Acute Onset Date 11/21/15 Plan Changed to rocephin. 2. Hypokalemia Status Acute Onset Date Unknown Plan Replacing. 3. BPH (benign prostatic hyperplasia) Status Chronic Onset Date Unknown Plan On medications. 4. Diarrhea Plan On-going and not evaluated per patient/family. Will get stool studies. 5. Postprandial nausea Plan Per family/patient, not previously evaluated. will get Upper GI. ? GERD vs. dysphagia vs. gastroparesis vs. other.
[2016-06-02 18:47] VITALS: BP 118/63
[2016-06-02 22:01] VITALS: BP 138/76
[2016-06-03 02:02] VITALS: BP 134/78
[2016-06-03 06:30] VITALS: BP 149/83
[2016-06-03 10:05] VITALS: BP 114/97
[2016-06-03 15:04] VITALS: BP 150/82
--- NOTE | 2016-06-03 15:31 | DIAGNOSTIC IMAGING REPORT ---
PROCEDURE: XR UPPER GI WITH AIR INDICATION: Nausea after eating. Possible reflux. Gastroparesis. Parkinson's disease. TECHNIQUE: Double contrast study. Fluoroscopy time, 4.5 minutes; 3019.25 mGy. 35 fluoroscopic images (including cinefluoroscopy). COMPARISON: None. FINDINGS: Moderate to marked spontaneous gastroesophageal reflux. Mild tertiary contractions (presbyesophagus). Esophagus is otherwise normal. Stomach is normal. Duodenum is normal and no ulcers are seen. The rest of the proximal small bowel is normal with normal transit time. No evidence of gastroparesis. IMPRESSION: 1. Moderate to marked spontaneous gastroesophageal reflux. 2. Otherwise negative upper GI. 3. Findings discussed with Dr. Petit.
--- NOTE | 2016-06-03 16:32 | Progress Note ---
Subjective General Patient seen and examined, patient resting comfortably without any complaints. Patient having persistent nausea with no actual vomiting. Patient is otherwise stable without any other new findings. Constitutional Weakness. Denies: Fever, Chills, Sweats, Malaise, Other. Respiratory Denies: Cough, Dry, SOB w/exertion, Wheezing, Hemoptysis, Pleuritic Pain, Sputum , Other. Cardiovascular Denies: Chest Pain, Palpitations, Orthopnea, PND, Edema, Light-headedness, Other. Gastrointestinal Nausea. Denies: Vomiting, Abdominal Pain, Diarrhea, Constipation, Melena, Hematochezia, Other. Genitourinary Denies: Dysuria, Frequency, Incontinence, Hematuria, Retention, Other. Musculoskeletal Denies: Neck Pain, Shoulder Pain, Arm Pain, Back Pain, Hand Pain, Leg Pain, Foot Pain, Other. Skin Denies: Rash, Lesions, Jaundice, Bruising, Other. Physical Exam Vital Signs / I&Os Vital Signs Date Time Temp Pulse Resp B/P Pulse O2 O2 Flow FiO2 Ox Delivery Rate 06/03 1504 98.6 81 18 150/82 93 06/03 1030 2.0 06/03 1005 98.1 84 18 114/97 93 Nasal 2.0 Cannula 06/03 0918 2.0 06/03 0630 99.1 80 18 149/83 96 Nasal 2.0 Cannula 06/03 0400 99.9 06/03 0202 100.2 82 24 134/78 99 Nasal 2.0 Cannula 06/03 0124 97 Nasal 2.0 Cannula 06/03 0017 102.6 87 87 06/02 2226 98.4 06/02 2201 101.5 96 24 138/76 98 Nasal Cannula 06/02 2009 2.0 06/02 1847 98.1 92 15 118/63 95 Nasal 2.0 Cannula I&O 06/02 0800 06/02 1600 06/03 0000 Intake Total 485 1000 Output Total 500 500 600 Balance -500 -15 400 General Appearance Alert, Oriented X3, No acute distress Lungs Normal exam, Normal air movement Cardiovascular Regular rate and rhythm, No murmurs, gallops, rubs Abdomen Soft, No tenderness, No guarding Extremities No edema, Normal pulses, No tenderness, Strength = upper ext's, Strength = lower ext's Skin No Breakdown Psych/Mental Status Mood normal LAB Results Laboratory Tests 06/03 06/03 [facility] 0737 Chemistry Plasma Sodium (136 - 145 mmol/L) 136 Plasma Potassium (3.5 - 5.1 mmol/L) 3.6 Plasma Chloride (98 - 107 mmol/L) 101 CO2 (Enzymatic) (21 - 32 mmol/L) 28 BUN (7 - 18 mg/dL) 14 Creatinine (0.6 - 1.3 mg/dL) 0.9 Est GFR ( Amer) (mL/min) >60 Est GFR (Non-Af Amer) (mL/min) >60 Glucose (70 - 110 mg/dL) 120 Plasma Calcium (8.5 - 10.1 mg/dL) 7.9 Total Bilirubin (0.0 - 1.0 mg/dL) 0.8 AST (15 - 37 U/L) 14 ALT (12 - 78 U/L) 18 Alkaline Phosphatase (46 - 116 U/L) 61 Total Protein (6.4 - 8.2 g/dL) 5.8 Albumin (3.3 - 5.0 g/dL) 2.1 Hematology WBC (4.5 - 11.5 K/uL) 7.1 RBC (4.50 - 5.90 M/uL) 3.46 Hgb (13.5 - 17.5 gm/dL) 10.5 Hct (41.0 - 53.0 %) 31.4 MCV (80 - 100 fL) 91 MCH (26 - 34 pg) 30 RDW (11.6 - 14.8 %) 16.2 Neut % (Auto) (50 - 75 %) 81.9 Lymph % (Auto) (25 - 40 %) 9.4 [place] % (Auto) (3 - 14 %) 8.5 Eos % (Auto) (0 - 4 %) 0.1 Baso % (Auto) (0 - 2 %) 0.1 Plt Count, EDTA (150 - 400 K/uL) 81 PUBS MCHC (31 - 37 g/dL) 34 Other Body Source Stool Occult Blood Pending Stl Occult Blood (ICT) (NEGATIVE) NEGATIVE Occult Blood (ICT) #2 (NEGATIVE) Pending Occult Blood (ICT) #3 (NEGATIVE) Pending Microbiology Date/Time Procedure - Status Source Growth 06/03 K Clostridium difficile Toxin A & B - COMP STOOL 06/03 K Specimen Source - COMP STOOL 06/03 [facility] Clostridium difficile Toxin A & B - CAN STOOL Cancelled: DUPLICATE ORDER. 06/03 UNK Specimen Source - CAN STOOL Cancelled: DUPLICATE ORDER. Assessment and Plan Problem List 1. Postprandial nausea Plan - pt seen to have reflux on upper GI series - pt placed on ppis and carafate - no nausea present with the start of this medication - will continue to monitor and continue with a regular cardiac diet 2. Diarrhea Plan - pt has been having chronic diarrhea - thus far the stool has not had any evidence of infectious etiology - if work up is negative will place pt on anti-motility agent 3. UTI (urinary tract infection) Status Acute Onset Date 11/21/15 Plan - will c/w ceftriaxone - pt is otherwise non-symptomatic - will continue to trend blood work 4. Syncopal episodes Plan - no dizziness of syncopal episodes while in the hospital - will follow up with echo to rule out any underlying cardiac condition
[2016-06-03 18:11] VITALS: BP 95/54
--- NOTE | 2016-06-03 18:19 | DIAGNOSTIC IMAGING REPORT ---
REFERRING PHYSICIAN/PROVIDER: Gilda Hall MD CONSULTING GRINDING ROOM INSPECTOR: Dawson Allison MD INDICATION: Bacteremia + murmur INTERPRETATIONS: Procedure: A two-dimensional transthoracic echocardiogram with color flow and Doppler was performed. The study quality was technically adequate. The patient was in normal sinus rhythm during the exam. Left Ventricle: Left ventricular wall thickness is mildly increased. The left ventricle is normal in size. Left ventricular systolic function is normal. The ejection fraction is estimated to be 60-65%. There are no obvious focal wall motion abnormalities noted but poor endocardial definition reduces the sensitivity for the detection of such. Spectral Doppler of the mitral valve is consistent with restriction, with an E/A wave ratio > 2.0. Right Ventricle: The right ventricle is not well visualized. The right ventricle grossly appears normal in size with probable normal systolic function. Atria: The left atrium is moderately dilated. The right atrium is mildly dilated. The interatrial septum is intact with no evidence for an atrial septal defect. Mitral Valve: The mitral valve is normal in structure but abnormal in function. There is mild mitral regurgitation. Aortic Valve: The aortic valve is trileaflet. The aortic valve is moderately calcified. There is mild to moderate aortic stenosis. The calculated aortic valve area is 1.5 cm2. There is no aortic regurgitation. Tricuspid Valve: The tricuspid valve is normal in structure and function. There is mild tricuspid regurgitation. The right ventricular systolic pressure is estimated at 51 mmHg assuming a right atrial pressure of 8 mm Hg. Pulmonic Valve: The pulmonic valve is not well seen, but is grossly normal. There is a trace or physiologic amount of pulmonic regurgitation. There is no other significant valvular heart disease. Great Vessels: The aortic root is normal size. The ascending aorta is mild-moderately enlarged. It measures at 4.1 cm. The IVC is of normal diameter and collapses less than 50% with a sniff. This suggests a right atrial pressure of 8 mm Hg. Pericardium/ Pleura There is no pericardial effusion. IMPRESSION: Left ventricular wall thickness is mildly increased. Left ventricular systolic function is normal. The ejection fraction is estimated to be 60-65%. There are no obvious focal wall motion abnormalities noted but poor endocardial definition reduces the sensitivity for the detection of such. Spectral Doppler of the mitral valve is consistent with restriction, with an E/A wave ratio > 2.0. The right ventricle is not well visualized. The right ventricle grossly appears normal in size with probable normal systolic function. The right ventricular systolic pressure is estimated at 51 mmHg assuming a right atrial pressure of 8 mm Hg. The left atrium is moderately dilated. The right atrium is mildly dilated. There is mild mitral regurgitation. There is mild to moderate aortic stenosis. The calculated aortic valve area is 1.5 cm2. There is no other significant valvular heart disease. The ascending aorta is mild-moderately enlarged. It measures at 4.1 cm. No gross evidence for vegetative masses. Consider MUSA if clinically suspicious for endocarditis.
[2016-06-03 22:21] VITALS: BP 137/78
[2016-06-04 01:58] VITALS: BP 134/70
[2016-06-04 06:07] VITALS: BP 149/82
--- NOTE | 2016-06-04 11:15 | Progress Note ---
Subjective General Pt seen and examined. Patient does not have any nausea and diarrhea since starting the acid reducing medicaitons. As of right now given his stable echocardiogram and resolution of his primary problems the patient could be discharged today. Constitutional Denies: Fever, Chills, Sweats, Weakness, Malaise, Other. Eyes Denies: Pain, Vision Change, Conjunctival Inflammation, Eyelid Inflammation, Redness, Other. ENT Denies: Ear Pain, Ear Discharge, Nose Pain, Nasal Discharge, Nasal Congestion, Mouth Pain, Mouth Swelling, Throat Pain, Throat Swelling, Other. Respiratory Denies: Cough, Dry, SOB w/exertion, Wheezing, Hemoptysis, Pleuritic Pain, Sputum , Other. Cardiovascular Denies: Chest Pain, Palpitations, Orthopnea, PND, Edema, Light-headedness, Other. Gastrointestinal Denies: Nausea, Vomiting, Abdominal Pain, Diarrhea, Constipation, Melena, Hematochezia, Other. Genitourinary Denies: Dysuria, Frequency, Incontinence, Hematuria, Retention, Other. Musculoskeletal Denies: Neck Pain, Shoulder Pain, Arm Pain, Back Pain, Hand Pain, Leg Pain, Foot Pain, Other. Skin Denies: Rash, Lesions, Jaundice, Bruising, Other. Neurological Denies: Weakness, Numbness, Incoordination, Change in speech, Confusion, Seizures, Other. Physical Exam Vital Signs / I&Os Vital Signs Date Time Temp Pulse Resp B/P Pulse O2 O2 Flow FiO2 Ox Delivery Rate 06/04 0607 98.4 74 18 149/82 95 Nasal 2.0 Cannula 06/04 0158 98.1 78 16 134/70 91 Nasal 2.0 Cannula 06/03 2221 98.1 91 18 137/78 93 Nasal 2.0 Cannula 06/03 1811 97.9 92 18 95/54 93 06/03 1504 98.6 81 18 150/82 93 I&O 06/03 0800 06/03 1600 06/04 0000 Intake Total 614 480 Output Total 850 225 627 Balance -236 -225 -147 General Appearance Alert, Oriented X3, No acute distress Lungs Clear to auscultation, Normal air movement Cardiovascular Regular rate and rhythm, Normal S1 and S2, No murmurs, gallops, rubs Abdomen Normal bowel sounds, Soft, No tenderness, No guarding Extremities No edema, Normal pulses, No tenderness, Strength = upper ext's, Strength = lower ext's Skin No Breakdown, No Significant Lesions Psych/Mental Status Mood normal LAB Results Laboratory Tests 06/04 0545 Hematology WBC (4.5 - 11.5 K/uL) 5.5 RBC (4.50 - 5.90 M/uL) 3.50 Hgb (13.5 - 17.5 gm/dL) 10.6 Hct (41.0 - 53.0 %) 31.9 MCV (80 - 100 fL) 91 MCH (26 - 34 pg) 30 RDW (11.6 - 14.8 %) 15.8 Neut % (Auto) (50 - 75 %) 73.8 Lymph % (Auto) (25 - 40 %) 13.2 Kingfisher % (Auto) (3 - 14 %) 12.3 Eos % (Auto) (0 - 4 %) 0.5 Baso % (Auto) (0 - 2 %) 0.2 Plt Count, EDTA (150 - 400 K/uL) 88 PUBS MCHC (31 - 37 g/dL) 33 Assessment and Plan Problem List 1. Postprandial nausea Plan - resolved - pt has not had any nausea since starting the acid reduction medication - will c/w it as an out patient 2. Diarrhea Plan - resolved - no further episodes since starting the proton pump inhibitor 3. UTI (urinary tract infection) Status Acute Onset Date 11/21/15 Plan - day 3 of antibiotics - will continue with it as an out patient 4. Syncopal episodes Plan - no further episodes of dizziness or loss of conciousness - initial syncopal episode most likely due to decreased perfusion pressures secondary to dehydration and infection - echocardiogram did not reveal any changes - will keep medications as they are
[2016-06-04] MEDS ORDERED: CEFPODOXIME PR100 MG PO (13:42)
--- NOTE | 2016-06-04 13:44 | Provider's Discharge Care Plan ---
Problem, Goal, Plan Problem List 1. Syncopal episodes Instructions: Follow up as needed, - resolved - echocardiogram of the heart did not reveal any abnormality 2. Hypotension Instructions: - stable - secondary to infection 3. Renal insufficiency Instructions: - resolved 4. Diarrhea Instructions: Take meds as directed 5. Postprandial nausea Instructions: Take meds as directed
[2016-06-04] MEDS ORDERED: PANTOPRAZOLE SO40 MG PO (13:45)
--- NOTE | 2016-06-04 13:46 | Discharge Summary ---
Discharge Summary Report Admit Date 06/01/16 Discharge Date 06/04/16 Admission Diagnosis uti, dehydration Discharge Diagnosis uti, dehydration, GERD, sycnope Brief History The patient is a 80-year-old male with a history of Parkinson's disease, hypertension, hypercholesterolemia, coronary artery disease status post coronary artery bypass grafting, recurrent urinary tract infection, who was brought in from [facility] because of fever. He allegedly had a temperature up to 103 this morning and was also noted to be confused. He was allegedly tachypneic and tachycardic. The patient is not a very good historian. He denies having any cough, shortness of breath, abdominal pain, nausea, or vomiting. He denies having any urinary symptoms. The patient apparently was noted to have decreased urine output. The patient was evaluated in the emergency department where he was noted to have an elevated white count of 13.9. Urine showed positive leukocyte esterase, greater than 100 WBC and many bacteria. Hospital Course Patient was admitted for syncope, dehydration, post prandial nausea, and evidence of uti. Patient was treated with antibiotics for the uti on admission. Patients overall energy improved however the patient was still seen to be hypotensive, which was responsive to fluids. Patient then was seen to have improved blood pressure and no further feelings of dizziness. Patient had an echocardiogram which did not reveal any etiology that would predispose the patient to syncopal events. Patient lastly was seen to have post prandial nausea. Patient was treated with acid reducing medicaitons and his symptoms resolved as did his chronic diarrhea. Patient will be discharged today. General Appearance Alert, Oriented X3, No acute distress HEENT Atraumatic, PERRLA, EOMI, Mucous membran moist/pink Lungs Clear to auscultation, Normal air movement Cardiovascular Normal S1, Normal S2, No murmurs, Gallops, Rubs Abdomen Soft, No hepatospenomegaly, No masses Skin No Breakdown, No Significant Lesions Neurological Normal speech, Normal tone, Cranial nerves 3-12 NL Lab/Imaging Laboratory Tests 06/04 0545 Hematology WBC (4.5 - 11.5 K/uL) 5.5 RBC (4.50 - 5.90 M/uL) 3.50 Hgb (13.5 - 17.5 gm/dL) 10.6 Hct (41.0 - 53.0 %) 31.9 MCV (80 - 100 fL) 91 MCH (26 - 34 pg) 30 RDW (11.6 - 14.8 %) 15.8 Neut % (Auto) (50 - 75 %) 73.8 Lymph % (Auto) (25 - 40 %) 13.2 Prentiss % (Auto) (3 - 14 %) 12.3 Eos % (Auto) (0 - 4 %) 0.5 Baso % (Auto) (0 - 2 %) 0.2 Plt Count, EDTA (150 - 400 K/uL) 88 PUBS MCHC (31 - 37 g/dL) 33 Discharge Instructions/Meds - take medications as prescribed - finish course of antibiotics - follow up with your pmd
== END 2016-06-04 14:45 | DRG 690 ==
LOC: ED SRH 18:04 → TRANS SRH 20:06 → ACUTE2 SRH 21:15
PROVIDERS: ADMIT Emergency Medicine
PROC: 0T9B70Z Drainage of Bladder with Drainage Device, Via Natural or Artificial Opening (ICD-10-PCS; principal; 2016-06-01)
DX: N39.0 Urinary tract infection, site not specified (principal); E86.0 Dehydration; R55 Syncope and collapse; F05 Delirium due to known physiological condition; G20 Parkinson's disease; E87.6 Hypokalemia; E83.42 Hypomagnesemia; R19.7 Diarrhea, unspecified; I10 Essential (primary) hypertension; K21.9 Gastro-esophageal reflux disease without esophagitis; I25.10 Atherosclerotic heart disease of native coronary artery without angina pectoris; Z95.1 Presence of aortocoronary bypass graft
CPT/HCPCS: 83480; 83742; 85244; 90004; 90065; 90074; 90100; 90112; 90124; 90148; 90455; 90469; 90616; 92031; 92610; 92720; 92755; 95059

== ENCOUNTER 2016-06-24 10:26 | Emergency (ER) | payer OTHER ==
[~2016-06-24 10:26] MED LIST changes: +CEFPODOXIME PR100 MG PO; +PANTOPRAZOLE SO40 MG PO
--- NOTE | 2016-06-24 11:56 | ED ORDER SUMMARY ---
..... Patient: URBANO CHANDLER OrderSheet [facility] VisitID: [id number] [place] [address] 80y, M Registration Date/Time: 06/24/2016 ORDER SHEET Weight: 68.0 kg (stated) Allergies: No Known Drug Allergy GENERAL ORDERS: CT Head wo Cont Urgent (10:50 06/24/2016 Ena JUÁREZ) (Ack 10:56 Dane) (11:16 LNations ER Tech1) CT Cervical Spine wo Cont Urgent (10:51 06/24/2016 Ena JUÁREZ) (Ack 10:56 Dane) (11:16 LNations ER Tech1) C-Collar (10:51 06/24/2016 Ena JUÁREZ) (Ack 10:56 Dane) (11:16 LNations ER Tech1) MEDICATION ORDERS: IV FLUIDS: ORDER SHEET NOTES: [Electronically signed by Christal Hernandez R.N. (16:51 06/24/2016)] [Electronically signed by Christie Beauchamp MD (14:03 07/02/2016)] [Electronically locked/signed by Christal Hernandez R.N. (16:51 06/24/2016)]
--- NOTE | 2016-06-24 11:56 | ED NURSING NOTES ---
Clinical Report - Nurses [facility] [address] [place] [address] 06/24/2016 10:30 Patient: URBANO CHANDLER TRIAGE Triage time 10:28. Acuity: LEVEL 3. Chief Complaint: DIZZINESS (SYNCOPE, fall from WC). Alert. No acute distress. JAYA COMA SCORE: Jaya Coma Scale: 15- eyes open spontaneously (4); best verbal response- oriented x 4 (5); best motor response- obeys commands (6). --10:39 Christal Hernandez R.N. 10:34 06/24/16. BP: 102/58. HR: 74. RR: 16. O2 saturation: 92% on room air. Temp: 97.6 F. Pain level now: 0/10. --10:39 Christal Hernandez R.N. Weight: 68 kg stated. Height/Length: 68 inches Per Patient. BMI: 22.8. --12:35 Christal Hernandez R.N. Medications Flagyl Oral 500 mg, 2x a day, started 06/14/16, stopped 06/20/16 (for 7 days). --10:49 Christal Hernandez R.N. ROPINIRole HCl Oral (Tablet 2 mg) 1 tablet, 5 x daily. --10:56 Christal Hernandez R.N. Rytary 36.25-145 mg - 3 caps, 3x a day. --10:56 Christal Hernandez R.N. Tamsulosin HCl Oral (Capsule 0.4 mg) 1 capsule, daily. --10:57 Christal Hernandez R.N. Trospium Chloride Oral (Tablet 20 mg) 1 tablet, twice daily. --10:57 Christal Hernandez R.N. Zofran Oral 4 mg, as needed. --10:57 Christal Hernandez R.N. Potassium Oral 20 mEq, daily. --10:59 Christal Hernandez R.N. Debrox Otic, as needed. --11:00 Christal Hernandez R.N. Psyllium Oral 1 packet, daily. --11:01 Christal Hernandez R.N. Acetaminophen Oral 650 mg, as needed. --11:01 Christal Hernandez R.N. Pantoprazole Sodium Oral 10 mg, daily. --11:02 Christal Hernandez R.N. Amantadine HCl Oral 100 mg, 2x a day. --11:03 Christal Hernandez R.N. ASA Oral 81 mg, daily. --11:04 Christal Hernandez R.N. Atorvastatin Calcium Oral 80 mg, daily. --11:04 Christal Hernandez R.N. Cholecalciferol Oral (Tablet 2000 unit) 2 tablets, daily. --11:05 Christal Hernandez R.N. Fludrocortisone Acetate Oral (Tablet 0.1 mg) 1 tablet, daily. --11:07 Christal Hernandez R.N. Metoprolol Tartrate Oral (Tablet 25 mg) 1/2 tablet, 2 times daily. --11:08 Christal Hernandez R.N. Nitroglycerin Sublingual (Tablet Sublingual 0.4 mg) 1 tablet, 3x a day as needed. --11:08 Christal Hernandez R.N. Davenport 3 Oral (Capsule 1000 mg) 1 capsule, daily. --11:09 Christal Hernandez R.N. Sertraline HCl Oral 50 mg, daily. --11:10 Christal Hernandez R.N. Pimavaserin 34 mg, daily. --11:11 Christal Hernandez R.N. Biscolax Rectal, as needed. --11:11 Christal Hernandez R.N. Saline enema, PRN. --11:12 Christal Hernandez R.N. Milk of Magnesia Oral 30 ml, as needed. --11:13 Christal Hernandez R.N. Allergies No Known Drug Allergy. --11:15 Christal Hernandez R.N. History Arrived by EMS. Historian: EMS and patient. Accompanied by (EMS). Primary physician ([place]). This started today. ( staff at [facility] stated he fell forward out of his WC, struck the top of his head, staff also reported he had (syncopal episodes) also). SOCIAL HX: Never smoker. Alcohol use; consumes wine occasionally. No drug use. FALL RISK ASSESSMENT: Fall risk assessment completed. Risk factors identified include patient age greater than 65 years, history of fall and impairment of mobility. Fall interventions initiated. Patient placed on stretcher. Side rails up x2. Brakes on Bed in low position. --10:39 Christal Hernandez R.N. Treatment WEB PROJECT MANAGER: EMS treatment WEB PROJECT MANAGER verbally communicated. See EMS report. Finger stick glucose performed (130). BP: 90 palp. HR: 70's. ( after 500 ml NS bolus, BP up to 119/80). Upon arrival patient awake. --11:45 Christal Hernandez R.N. PROBLEMS: CVA - Cerebrovascular Accident. Prior Injury, Same Area. Pressure Ulcer. Wound to rt foot . Constipation. Hypovolemia. Hypotension. Syncope. Renal Insufficiency. UTI - Urinary Tract Infection. Urinary Retention. Immunizations. Hypercholesterolemia. Parkinson's Disease. Hypertension. --10:34 Christal Hrenandez R.N. C. Difficile Colitis. --10:36 Christal Hernnadez R.N. Benign Prostatic Hypertrophy. Orthostatic hypotension. Depression. Vit D deficency. Vit B deficiency. Hypokalemia. Sepsis. --11:40 Christal Hernandez R.N. Nausea. --11:41 Christal Hernandez R.N. ADDITIONAL SURGERIES: Hernia Repair. 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 Vasectomy. --10:34 Christal Hernandez R.N. Assessment GENERAL / NEURO / PSYCH: Alert. Oriented X 4. Appears in no acute distress. Patient appears calm and cooperative. RESPIRATORY: Respirations not labored. SKIN: Skin is warm and dry. --10:39 Christal Hernandez R.N. Interventions ID band on patient. To treatment room. --10:39 Christal Hernandez R.N. 10:40 06/24/2016 Site #1 started prior to arrival by EMS via IV in the right wrist with an 18g angiocath. --11:43 Christal Hernandez R.N. PHYSICAL ASSESSMENT 10:40 06/24/16. To room via stretcher. Patient gowned. GENERAL / NEURO / PSYCH: Alert. Oriented X 4. Appears in no acute distress. RESPIRATORY: Respirations not labored. SKIN: Skin is warm and dry. --10:40 Christal Hernandez R.N. NURSING PROGRESS NOTES 10:45 06/24/16. urgent care, pulse oximeter and NIBP monitor placed on patient. Patient gowned. Head of bed elevated. Call light placed in reach. Side rails up x 2. Bed placed in lowest position. Brakes of bed on. --10:45 Christal Hernandez R.N. 10:40 06/24/16. BP: 104/65. HR: 75. RR: 16. O2 saturation: 91%. Pain level now: 0. --10:45 Christal Hernandez R.N. ( c-collar applied per 11:15). --11:49 [place] [id number] 11:45. Cardiac rhythm: sinus rhythm; occasional ectopic beats. The patient is resting quietly. Overall patient status is the same- he states feels the same. RESPIRATORY: No respiratory distress. SKIN: Skin is warm and dry. --16:46 Christal Hernandez R.N. 12:30. Reassessment after fluids administered. He is calm and resting quietly. Overall patient status is improved- he states feels better. RESPIRATORY: No respiratory distress. CVS: Cardiac rhythm: sinus rhythm; occasional ectopic beats. SKIN: Skin is warm and dry. --16:47 Christal Hernandez R.N. 10:15 06/24/16. BP: 111/71. HR: 73. RR: 18. O2 saturation: 98% on nasal cannula at 2 liters/minute. --16:50 Christal Hernandez R.N. 11:15 06/24/16. BP: 111/87. HR: 71. RR: 18. O2 saturation: 100% on nasal cannula at 2 liters/minute. --16:51 Christal Hernandez R.N. DISPOSITION / DISCHARGE 12:30 06/24/2016 Site #1 removed upon discharge. Catheter intact. Bandaid applied. --16:40 David, Christal, R.N. Departure time: 1230. Condition at departure: stable. Fall risk assessment completed. Risk factors identified include patient age greater than 65 years, history of fall and impairment of mobility. Fall interventions initiated. Patient placed in wheelchair. No learning barriers present. Discharge instructions provided and reviewed with the patient. Patient verbalized understanding. Written instructions provided in Luxembourgish. The patient was discharged home and accompanied by spouse. He left the Emergency Department in a wheelchair and via private vehicle. --16:45 Christal Hernandez R.N. 12:30 06/24/16. BP: 116/70. HR: 77. RR: 15. O2 saturation: 95% on room air. Pain level now: 0/10. Patient is conversant. --16:45 Christal Hernandez R.N. 12:30. ( pt was assisted into WC and then helped into a POV by EDT). --16:48 Christal Hernandez R.N. Locked/Released at 06/24/2016 16:51 by Christal Hernandez R.N.
--- NOTE | 2016-06-24 11:56 | ED CLINICAL REPORT ---
Clinical Report - Physicians/Mid Levels [facility] [address] [place] [address] 06/24/2016 10:30 Patient: URBANO CHANDLER Time Seen: 10:50. Arrived- By private vehicle. Historian- patient. HISTORY OF PRESENT ILLNESS Location of injuries- head. Chief Complaint: FALL. The injury occurred today. Occurred at home. (assisted living facility). Fell (Pt states he was sitting in his wheelchair, and nodded off. He lost his balance while dozing, and awoke to find himself falling out of the chair. Pt states he may have mildly bumped his head, but denies other complaints.). The patient denies pain. The patient sustained a mild blow to the head. No neck pain, loss of consciousness or seizure. Not dazed. REVIEW OF SYSTEMS No numbness, dizziness, loss of vision, hearing loss or chest pain. No difficulty breathing, weakness, headache, nausea or abdominal pain. No laceration, fever, vomiting or urinary problems. The patient has no pain on weight bearing. All systems otherwise negative, except as recorded above. PAST HISTORY Problems: Benign Prostatic Hypertrophy. Orthostatic hypotension. Depression. Vit D deficency. Vit B deficiency. Sepsis. C. Difficile Colitis. CVA - Cerebrovascular Accident. Pressure Ulcer. Constipation. Syncope. Renal Insufficiency. Urinary Retention. Immunizations. Hypercholesterolemia. Parkinson's Disease. Hypertension. Additional Surgeries: Hernia Repair. 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 Vasectomy. Medications: Milk of Magnesia Oral 30 ml, as needed. Saline enema, PRN. Biscolax Rectal, as needed. Pimavaserin 34 mg, daily. Sertraline HCl Oral 50 mg, daily. Scroggins 3 Oral (Capsule 1000 mg) 1 capsule, daily. Nitroglycerin Sublingual (Tablet Sublingual 0.4 mg) 1 tablet, 3x a day as needed. Metoprolol Tartrate Oral (Tablet 25 mg) 1/2 tablet, 2 times daily. Fludrocortisone Acetate Oral (Tablet 0.1 mg) 1 tablet, daily. Cholecalciferol Oral (Tablet 2000 unit) 2 tablets, daily. Atorvastatin Calcium Oral 80 mg, daily. ASA Oral 81 mg, daily. Amantadine HCl Oral 100 mg, 2x a day. Pantoprazole Sodium Oral 10 mg, daily. Acetaminophen Oral 650 mg, as needed. Psyllium Oral 1 packet, daily. Debrox Otic, as needed. Potassium Oral 20 mEq, daily. Zofran Oral 4 mg, as needed. Trospium Chloride Oral (Tablet 20 mg) 1 tablet, twice daily. Tamsulosin HCl Oral (Capsule 0.4 mg) 1 capsule, daily. Rytary 36.25-145 mg - 3 caps, 3x a day. ROPINIRole HCl Oral (Tablet 2 mg) 1 tablet, 5 x daily. Flagyl Oral 500 mg, 2x a day, started 06/14/16, stopped 06/20/16 (for 7 days). Allergies: No Known Drug Allergy. SOCIAL HISTORY Never smoker. Occasional alcohol use. No drug use. ADDITIONAL NOTES The nursing notes have been reviewed. PHYSICAL EXAM Vital Signs: 06/24/2016 10:34 BP: 102/58. HR: 74. RR: 16. O2 saturation: 92%. Temp: 97.6 F. Pain level now: 0/10. Have been reviewed. Appearance: Alert. Oriented X3. No acute distress. Head: Head non-tender. No swelling of head. Eyes: Pupils equal, round and reactive to light. EOM intact. ENT: No dental injury. Neck: Painless ROM. Non-tender. CVS: Heart sounds normal. Pulses normal. Respiratory: Breath sounds normal. Chest nontender. Abdomen: No visible injury. Soft and nontender. Back: No tenderness. ROM normal. Skin: Skin intact. Skin warm and dry. Normal skin color. Normal skin turgor. Extremities: Normal inspection. Pelvis stable. Extremities atraumatic. No lower extremity edema. Neuro: Oriented X 3. No motor deficit. No sensory deficit. LABS, X-RAYS, AND EKG CT C-Spine: No acute findings. Degenerative joint disease. Soft tissue normal. No fracture or subluxation. The study was independently viewed by me, interpreted by the radiologist and contemporaneously by me and discussed with the radiologist. Prior studies were not available for comparison. CT Head: No acute changes. No bony abnormalities, no hemorrhage, no intracranial mass, no midline shift and no hydrocephalus. There is mild atrophy is present. Head CT performed without contrast. The study was independently viewed by me, interpreted by the radiologist and contemporaneously by me and discussed with the radiologist. Prior studies were not available for comparison. Pulse Oximetry: 06/24/2016 10:15 O2 saturation: 98%. (FIO2 - room air). Interpretation: normal. PROGRESS AND PROCEDURES C-Spine Status: Cervical spine cleared by history and physical exam and CT scan. Patient alert and oriented times three and does not appear intoxicated. No distracting injury present. No complaint of neck pain. There is no neurological deficit or point tenderness on examination. Full cervical spine range of motion without pain. Course of Care: I did have a c-collar put on the pt, and his head and neck were imaged. No injury was found. Pt reported feeling well, and was without complaints, and I felt he was stable for d/c home. Patient and friend counseled in person regarding the patient's stable condition, test results, diagnosis and need for follow-up. Concerns were addressed. Old medical records reviewed. Disposition: Discharged. Condition: stable and improved. CLINICAL IMPRESSION Fall (from same level/wheelchair). INSTRUCTIONS Warnings: GENERAL WARNINGS: Return or contact your physician immediately if your condition worsens or changes unexpectedly, if not improving as expected, or if other problems arise. Your Current Medications: CONTINUE TAKING THE FOLLOWING MEDICATIONS: Acetaminophen Oral : 650 mg, prn. Amantadine HCl Oral : 100 mg 2x a day. ASA Oral : 81 mg daily. Atorvastatin Calcium Oral : 80 mg daily. Biscolax Rectal : prn. Cholecalciferol Oral : Tablet 2000 unit, 2 tablets daily. Debrox Otic : prn. Flagyl Oral : 500 mg 2x a day, Started: 06/14/16, Stopped: 06/20/16, for 7 days. Fludrocortisone Acetate Oral : Tablet 0.1 mg, 1 tablet daily. Metoprolol Tartrate Oral : Tablet 25 mg, 1/2 tablet 2 times daily. Milk of Magnesia Oral : 30 ml, prn. Nitroglycerin Sublingual : Tablet Sublingual 0.4 mg, 1 tablet 3x a day, prn. Scroggins 3 Oral : Capsule 1000 mg, 1 capsule daily. Pantoprazole Sodium Oral : 10 mg daily. Pimavaserin* : 34 mg daily. Potassium Oral : 20 mEq daily. Psyllium Oral : 1 packet daily. ROPINIRole HCl Oral : Tablet 2 mg, 1 tablet 5 x daily. Rytary* : 36.25-145 mg - 3 caps 3x a day. Saline enema* : PRN. Sertraline HCl Oral : 50 mg daily. Tamsulosin HCl Oral : Capsule 0.4 mg, 1 capsule daily. Trospium Chloride Oral : Tablet 20 mg, 1 tablet twice daily. Zofran Oral : 4 mg, prn. Follow-up: Follow up with your doctor as needed. Understanding of the discharge instructions verbalized by patient. (Electronically signed by Christie Beauchamp MD 07/02/2016 14:03)
--- NOTE | 2016-06-24 11:56 | ED NURSING NOTES ---
Clinical Report - [facility] [address] [place] [address] 06/24/2016 10:30 Patient: URBANO CHANDLER TRIAGE Triage time 10:28. Acuity: LEVEL 3. Chief Complaint: DIZZINESS (SYNCOPE, fall from WC). Alert. No acute distress. JAYA COMA SCORE: Jaya Coma Scale: 15- eyes open spontaneously (4); best verbal response- oriented x 4 (5); best motor response- obeys commands (6). --10:39 Christal Hernandez R.N. 10:34 06/24/16. BP: 102/58. HR: 74. RR: 16. O2 saturation: 92% on room air. Temp: 97.6 F. Pain level now: 0/10. --10:39 Christal Hernandez R.N. Weight: 68 kg stated. Height/Length: 68 inches Per Patient. BMI: 22.8. --12:35 Christal Hernandez R.N. Medications Flagyl Oral 500 mg, 2x a day, started 06/14/16, stopped 06/20/16 (for 7 days). --10:49 Christal Hernandez R.N. ROPINIRole HCl Oral (Tablet 2 mg) 1 tablet, 5 x daily. --10:56 Christal Hernandez R.N. Rytary 36.25-145 mg - 3 caps, 3x a day. --10:56 Christal Hernandez R.N. Tamsulosin HCl Oral (Capsule 0.4 mg) 1 capsule, daily. --10:57 Christal Hernandez R.N. Trospium Chloride Oral (Tablet 20 mg) 1 tablet, twice daily. --10:57 Christal Hernandez R.N. Zofran Oral 4 mg, as needed. --10:57 Christal Hernandez R.N. Potassium Oral 20 mEq, daily. --10:59 Christal Hernandez R.N. Debrox Otic, as needed. --11:00 Christal Hernandez R.N. Psyllium Oral 1 packet, daily. --11:01 Christal Hernandez R.N. Acetaminophen Oral 650 mg, as needed. --11:01 Christal Hernandez R.N. Pantoprazole Sodium Oral 10 mg, daily. --11:02 Christal Hernandez R.N. Amantadine HCl Oral 100 mg, 2x a day. --11:03 Christal Hernandez R.N. ASA Oral 81 mg, daily. --11:04 Christal Hernandez R.N. Atorvastatin Calcium Oral 80 mg, daily. --11:04 Christal Hernandez R.N. Cholecalciferol Oral (Tablet 2000 unit) 2 tablets, daily. --11:05 Christal Hernandez R.N. Fludrocortisone Acetate Oral (Tablet 0.1 mg) 1 tablet, daily. --11:07 Christal Hernandez R.N. Metoprolol Tartrate Oral (Tablet 25 mg) 1/2 tablet, 2 times daily. --11:08 Christal Hernandez R.N. Nitroglycerin Sublingual (Tablet Sublingual 0.4 mg) 1 tablet, 3x a day as needed. --11:08 Christal Hernandez R.N. [place] 3 Oral (Capsule 1000 mg) 1 capsule, daily. --11:09 Christal Hernandez R.N. Sertraline HCl Oral 50 mg, daily. --11:10 Christal Hernandez R.N. Pimavaserin 34 mg, daily. --11:11 Christal Hernandez R.N. Biscolax Rectal, as needed. --11:11 Christal Hernandez R.N. Saline enema, PRN. --11:12 Christal Hernandez R.N. Milk of Magnesia Oral 30 ml, as needed. --11:13 Christal Hernandez R.N. Allergies No Known Drug Allergy. --11:15 Christal Hernandez R.N. History Arrived by EMS. Historian: EMS and patient. Accompanied by (EMS). Primary physician ([place]). This started today. ( staff at [facility] stated he fell forward out of his WC, struck the top of his head, staff also reported he had (syncopal episodes) also). SOCIAL HX: Never smoker. Alcohol use; consumes wine occasionally. No drug use. FALL RISK ASSESSMENT: Fall risk assessment completed. Risk factors identified include patient age greater than 65 years, history of fall and impairment of mobility. Fall interventions initiated. Patient placed on stretcher. Side rails up x2. Brakes on Bed in low position. --10:39 Christal Hernandez R.N. Treatment SHERIFFS OFFICER: EMS treatment SHERIFFS OFFICER verbally communicated. See EMS report. Finger stick glucose performed (130). BP: 90 palp. HR: 70's. ( after 500 ml NS bolus, BP up to 119/80). Upon arrival patient awake. --11:45 Christal Hernandez R.N. PROBLEMS: CVA - Cerebrovascular Accident. Prior Injury, Same Area. Pressure Ulcer. Wound to rt foot . Constipation. Hypovolemia. Hypotension. Syncope. Renal Insufficiency. UTI - Urinary Tract Infection. Urinary Retention. Immunizations. Hypercholesterolemia. Parkinson's Disease. Hypertension. --10:34 Chrsital Hernandez R.N. C. Difficile Colitis. --10:36 Christal Hernandez R.N. Benign Prostatic Hypertrophy. Orthostatic hypotension. Depression. Vit D deficency. Vit B deficiency. Hypokalemia. Sepsis. --11:40 Christal Hernandez R.N. Nausea. --11:41 Christal Hernandez R.N. ADDITIONAL SURGERIES: Hernia Repair. 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 Vasectomy. --10:34 Christal Hernandez R.N. Assessment GENERAL / NEURO / PSYCH: Alert. Oriented X 4. Appears in no acute distress. Patient appears calm and cooperative. RESPIRATORY: Respirations not labored. SKIN: Skin is warm and dry. --10:39 Christal Hernandez R.N. Interventions ID band on patient. To treatment room. --10:39 Christal Hernandez R.N. 10:40 06/24/2016 Site #1 started prior to arrival by EMS via IV in the right wrist with an 18g angiocath. --11:43 Christal Hernandez R.N. PHYSICAL ASSESSMENT 10:40 06/24/16. To room via stretcher. Patient gowned. GENERAL / NEURO / PSYCH: Alert. Oriented X 4. Appears in no acute distress. RESPIRATORY: Respirations not labored. SKIN: Skin is warm and dry. --10:40 Christal Hernandez R.N. NURSING PROGRESS NOTES 10:45 06/24/16. cafeteria monitor, pulse oximeter and NIBP monitor placed on patient. Patient gowned. Head of bed elevated. Call light placed in reach. Side rails up x 2. Bed placed in lowest position. Brakes of bed on. --10:45 Christal Hernandez R.N. 10:40 06/24/16. BP: 104/65. HR: 75. RR: 16. O2 saturation: 91%. Pain level now: 0. --10:45 Christal Hernandez R.N. ( c-collar applied per 11:15). --11:49 [place] [id number] 11:45. Cardiac rhythm: sinus rhythm; occasional ectopic beats. The patient is resting quietly. Overall patient status is the same- he states feels the same. RESPIRATORY: No respiratory distress. SKIN: Skin is warm and dry. --16:46 Christal Hernandez R.N. 12:30. Reassessment after fluids administered. He is calm and resting quietly. Overall patient status is improved- he states feels better. RESPIRATORY: No respiratory distress. CVS: Cardiac rhythm: sinus rhythm; occasional ectopic beats. SKIN: Skin is warm and dry. --16:47 Christal Hernandez R.N. 10:15 06/24/16. BP: 111/71. HR: 73. RR: 18. O2 saturation: 98% on nasal cannula at 2 liters/minute. --16:50 Christal Hernandez R.N. 11:15 06/24/16. BP: 111/87. HR: 71. RR: 18. O2 saturation: 100% on nasal cannula at 2 liters/minute. --16:51 Christal Hernandez R.N. DISPOSITION / DISCHARGE 12:30 06/24/2016 Site #1 removed upon discharge. Catheter intact. Bandaid applied. --16:40 David, Christal, R.N. Departure time: 1230. Condition at departure: stable. Fall risk assessment completed. Risk factors identified include patient age greater than 65 years, history of fall and impairment of mobility. Fall interventions initiated. Patient placed in wheelchair. No learning barriers present. Discharge instructions provided and reviewed with the patient. Patient verbalized understanding. Written instructions provided in Serbian. The patient was discharged home and accompanied by spouse. He left the Emergency Department in a wheelchair and via private vehicle. --16:45 Christal Hernandez R.N. 12:30 06/24/16. BP: 116/70. HR: 77. RR: 15. O2 saturation: 95% on room air. Pain level now: 0/10. Patient is conversant. --16:45 Christal Hernandez R.N. 12:30. ( pt was assisted into WC and then helped into a POV by EDT). --16:48 Christal Hernandez R.N. Locked/Released at 06/24/2016 16:51 by Christal Hernandez R.N.
--- NOTE | 2016-06-24 11:56 | ED ORDER SUMMARY ---
..... Patient: URBANO CHANDLER OrderSheet Merged With [facility] VisitID: [id number] [place] [address] 80y, M Registration Date/Time: 06/24/2016 ORDER SHEET Weight: 68.0 kg (stated) Allergies: No Known Drug Allergy GENERAL ORDERS: CT Head wo Cont Urgent (10:50 06/24/2016 Ena JUÁREZ) (Ack 10:56 Dane) (11:16 LNations ER Tech1) CT Cervical Spine wo Cont Urgent (10:51 06/24/2016 Ena JUÁREZ) (Ack 10:56 Dane) (11:16 LNations ER Tech1) C-Collar (10:51 06/24/2016 Ena JUÁREZ) (Ack 10:56 Dane) (11:16 LNations ER Tech1) MEDICATION ORDERS: IV FLUIDS: ORDER SHEET NOTES: [Electronically signed by Christal Hernandez R.N. (16:51 06/24/2016)] [Electronically signed by Christie Beauchamp MD (14:03 07/02/2016)] [Electronically locked/signed by Christal Hernandez R.N. (16:51 06/24/2016)]
--- NOTE | 2016-06-24 11:57 | DIAGNOSTIC IMAGING REPORT ---
PROCEDURE: CT HEAD WITHOUT CONTRAST INDICATION: TRAUMA/INJURY TECHNIQUE: Axial CT images were acquired through the head. Coronal and sagittal reformations were created. COMPARISON: 11/20/2015 FINDINGS: Mild cerebral cortical atrophy. Mild diffuse hypodensity in the periventricular and subcortical white matter. Chronic focal subcortical white matter hypodensity of stable size of the right frontal lobe. No focal cortical defects. No intracranial hemorrhage or extraaxial fluid collections. Ventricles are normal in size, shape and position. There is no mass, mass effect or midline shift. The leigh-white matter differentiation is normal. There is no edema. Minor calcific atherosclerosis of the intracranial internal carotid arteries. The calvarium is intact. The paranasal sinuses and mastoid air cells are normally aerated. The extracranial soft tissues and orbits are normal. IMPRESSION: 1. No CT evidence of acute intracranial process. 2. Age related involutional and white matter changes. 3. Findings discussed with Dr. Beauchamp at [address] scans at this facility use dose modulation, iterative reconstruction, and/or weight-based dosing when appropriate to reduce radiation dose to as low as reasonably achievable.
--- NOTE | 2016-06-24 11:57 | DIAGNOSTIC IMAGING REPORT ---
PROCEDURE: CT CERVICAL SPINE W/O CONTRAST INDICATION: TRAUMA/INJURY TECHNIQUE: Axial CT images were obtained through the cervical spine. Coronal and sagittal reformations were created. No comparison. COMPARISON: None. FINDINGS: The craniocervical junction is intact with degenerative spurring, joint space loss, and sclerosis at the atlantodental interval. The cervical vertebral bodies are normal in height without evidence of fracture. There are severe degenerative facet changes on the right at C2-3, on the left at C3-4, and mild facet arthropathy elsewhere. There are degenerative endplate changes including spurring and irregularity at C5, C6, and C7 with anterior bridging osteophytes on the right at C5-6. These changes result in moderately severe left foraminal narrowing at C3-4, mild to moderate foraminal narrowing at C5-6, and mild foraminal narrowing on the left at C6-7. There is a mild gradual kyphosis of the lower cervical spine without significant central canal stenosis. Moderately severe degenerative disc height loss at C5-6 and C6-7. Mild disc height loss at C2-3 and C3-4. No prevertebral or paravertebral soft-tissue swelling or mass. Patent airway and normal lung apices. Ectatic ascending thoracic aorta and median sternotomy changes. IMPRESSION: 1. No evidence of fracture or pathologic subluxation. 2. Chronic-appearing degenerative disc, facet, and endplate changes resulting and multilevel foraminal narrowing as described. 3. Findings called to the emergency room. All CT scans at this facility use dose modulation, iterative reconstruction, and/or weight-based dosing when appropriate to reduce radiation dose to as low as reasonably achievable.
--- NOTE | 2016-07-02 14:04 | ED MAR SUMMARY ---
..... Medication Administration Record [facility] [address], [place] [id number] Patient: URBANO CHANDLER Visit ID: [id number] 80y, M Weight: 68.0 kg Height/Length: 68 in BMI: 22.8 ALLERGIES: No Known Drug Allergy
--- NOTE | 2016-07-02 14:04 | ED DISCHARGE INSTRUCTIONS ---
Patient: URBANO CHANDLER General Instructions [facility] VisitID: [id number] [place] [address] 80y, M Registration Date/Time: 06/24/2016 Fall (from same level/wheelchair). INSTRUCTIONS Warnings: GENERAL WARNINGS: Return or contact your physician immediately if your condition worsens or changes unexpectedly, if not improving as expected, or if other problems arise. Your Current Medications: CONTINUE TAKING THE FOLLOWING MEDICATIONS: Acetaminophen Oral : 650 mg, prn. Amantadine HCl Oral : 100 mg 2x a day. ASA Oral : 81 mg daily. Atorvastatin Calcium Oral : 80 mg daily. Biscolax Rectal : prn. Cholecalciferol Oral : Tablet 2000 unit, 2 tablets daily. Debrox Otic : prn. Flagyl Oral : 500 mg 2x a day, Started: 06/14/16, Stopped: 06/20/16, for 7 days. Fludrocortisone Acetate Oral : Tablet 0.1 mg, 1 tablet daily. Metoprolol Tartrate Oral : Tablet 25 mg, 1/2 tablet 2 times daily. Milk of Magnesia Oral : 30 ml, prn. Nitroglycerin Sublingual : Tablet Sublingual 0.4 mg, 1 tablet 3x a day, prn. [place] 3 Oral : Capsule 1000 mg, 1 capsule daily. Pantoprazole Sodium Oral : 10 mg daily. Pimavaserin* : 34 mg daily. Potassium Oral : 20 mEq daily. Psyllium Oral : 1 packet daily. ROPINIRole HCl Oral : Tablet 2 mg, 1 tablet 5 x daily. Rytary* : 36.25-145 mg - 3 caps 3x a day. Saline enema* : PRN. Sertraline HCl Oral : 50 mg daily. Tamsulosin HCl Oral : Capsule 0.4 mg, 1 capsule daily. Trospium Chloride Oral : Tablet 20 mg, 1 tablet twice daily. Zofran Oral : 4 mg, prn. Follow-up: Follow up with your doctor as needed. Understanding of the discharge instructions verbalized by patient. ADDITIONAL INFORMATION Mechanical Fall You have had a fall today. It appears that the cause is mechanical. That means that you slipped, tripped or lost your balance. If your fall had been due to fainting or a seizure, further tests would be required. Home Care: Rest today and resume your normal activities when you are feeling back to normal. If you were injured during the fall, follow the advice from your doctor regarding care of your injury. You may use acetaminophen (Tylenol) or ibuprofen (Motrin, Advil) to control pain, unless another pain medicine was prescribed. [NOTE: If you have chronic liver or kidney disease or ever had a stomach ulcer or GI bleeding, talk with your doctor before using these medicines.] Fall Prevention: Was there anything that caused your fall that can be fixed, removed, or replaced? Make your home safe by keeping walkways clear of objects you may trip over. Use non-slip pads under rugs. Do not walk in poorly lit areas. Do not stand on chairs or wobbly ladders. Use caution when reaching overhead or looking upward. This position can cause a loss of balance. Be sure your shoes fit properly, have non-slip bottoms and are in good condition. Be cautious when going up and down curbs, and walking on uneven sidewalks. If your balance is poor, consider using a cane or walker. Stay as active as you can. Balance, flexibility, strength, and endurance all come from exercise. They all play a role in preventing falls. Follow Up with your doctor or as advised by our staff. Get Prompt Medical Attention if any of the following occur: Repeated mechanical falls, or unexplained falls Dizziness, fainting or seizure Severe headache Chest pain or shortness of breath Palpitations (very rapid or very slow or irregular heartbeat) Blood in vomit, stools (black or red color) Weakness of an arm or leg or one side of the face Difficulty with speech or vision You have been given the following additional information: Fall, Mechanical (Electronically signed by Christie Beauchamp MD 07/02/2016 14:03)
--- NOTE | 2016-07-02 14:04 | ED MED RECONCILIATION SUMMARY ---
Patient: URBANO CHANDLER Medication Reconciliation Report [facility] VisitID: [id number] [place] [address] 80y, M Registration Date/Time: 06/24/2016 Weight: 68.0 kg Height/Length: 68 in. BMI: 22.8 ALLERGIES: No Known Drug Allergy The patient's Home Medications are listed below: CONTINUE TAKING THE FOLLOWING MEDICATIONS: Acetaminophen Oral 650 mg Amantadine HCl Oral 100 mg, 2x a day ASA Oral 81 mg, daily Atorvastatin Calcium Oral 80 mg, daily Biscolax Rectal Cholecalciferol Oral (2000 unit) 2 tablets, daily Debrox Otic Flagyl Oral 500 mg, 2x a day, for 7 days Fludrocortisone Acetate Oral (0.1 mg) 1 tablet, daily Metoprolol Tartrate Oral (25 mg) 1/2 tablet, 2 times daily Milk of Magnesia Oral 30 ml Nitroglycerin Sublingual (0.4 mg) 1 tablet, 3x a day [place] 3 Oral (1000 mg) 1 capsule, daily Pantoprazole Sodium Oral 10 mg, daily Pimavaserin 34 mg, daily Potassium Oral 20 mEq, daily Psyllium Oral 1 packet, daily ROPINIRole HCl Oral (2 mg) 1 tablet, 5 x daily Rytary 36.25-145 mg - 3 caps, 3x a day Saline enema, PRN Sertraline HCl Oral 50 mg, daily Tamsulosin HCl Oral (0.4 mg) 1 capsule, daily Trospium Chloride Oral (20 mg) 1 tablet, twice daily Zofran Oral 4 mg The source(s) of the original Home Medication information: Not obtained. The following Medications were given to the patient in the Emergency Department: None. The following Medications were prescribed to the patient: None.
--- NOTE | 2016-07-02 14:04 | ED MAR SUMMARY ---
..... Medication Administration Record [facility] [address] [place], [place] [id number] Patient: URBANO CHANDLER Visit ID: [id number] 80y, M Weight: 68.0 kg Height/Length: 68 in BMI: 22.8 ALLERGIES: No Known Drug Allergy
--- NOTE | 2016-07-02 14:04 | ED MED RECONCILIATION SUMMARY ---
Patient: URBNAO CHANDLER Medication Reconciliation Report [facility] VisitID: [id number] [place] [address] 80y, M Registration Date/Time: 06/24/2016 Weight: 68.0 kg Height/Length: 68 in. BMI: 22.8 ALLERGIES: No Known Drug Allergy The patient's Home Medications are listed below: CONTINUE TAKING THE FOLLOWING MEDICATIONS: Acetaminophen Oral 650 mg Amantadine HCl Oral 100 mg, 2x a day ASA Oral 81 mg, daily Atorvastatin Calcium Oral 80 mg, daily Biscolax Rectal Cholecalciferol Oral (2000 unit) 2 tablets, daily Debrox Otic Flagyl Oral 500 mg, 2x a day, for 7 days Fludrocortisone Acetate Oral (0.1 mg) 1 tablet, daily Metoprolol Tartrate Oral (25 mg) 1/2 tablet, 2 times daily Milk of Magnesia Oral 30 ml Nitroglycerin Sublingual (0.4 mg) 1 tablet, 3x a day [place] 3 Oral (1000 mg) 1 capsule, daily Pantoprazole Sodium Oral 10 mg, daily Pimavaserin 34 mg, daily Potassium Oral 20 mEq, daily Psyllium Oral 1 packet, daily ROPINIRole HCl Oral (2 mg) 1 tablet, 5 x daily Rytary 36.25-145 mg - 3 caps, 3x a day Saline enema, PRN Sertraline HCl Oral 50 mg, daily Tamsulosin HCl Oral (0.4 mg) 1 capsule, daily Trospium Chloride Oral (20 mg) 1 tablet, twice daily Zofran Oral 4 mg The source(s) of the original Home Medication information: Not obtained. The following Medications were given to the patient in the Emergency Department: None. The following Medications were prescribed to the patient: None.
== END 2016-06-24 12:30 | disposition home or self-care (01) ==
LOC: ED SRH 10:26
DX: Z04.3 Encounter for examination and observation following other accident (principal); W05.0XXA Fall from non-moving wheelchair, initial encounter; Y93.9 Activity, unspecified; Y92.129 Unspecified place in nursing home as the place of occurrence of the external cause; Y99.9 Unspecified external cause status; I10 Essential (primary) hypertension; Z86.73 Personal history of transient ischemic attack (TIA), and cerebral infarction without residual deficits; E78.00 Pure hypercholesterolemia, unspecified; G20 Parkinson's disease; Z79.52 Long term (current) use of systemic steroids

== ENCOUNTER 2016-07-28 20:40 | Emergency (ER) | payer OTHER ==
--- NOTE | 2016-07-28 22:38 | ED CLINICAL REPORT ---
Clinical Report - Physicians/Mid Levels [facility] [address] [place] [address] 07/28/2016 20:41 Patient: URBANO CHANDLER Time Seen: 2114. Arrived- By ambulance. Historian- patient and EMS personnel. HISTORY OF PRESENT ILLNESS Chief Complaint: HEMATURIA. (nausea). This started today and is still present. The problem is described as moderate. No penile discharge, discomfort with urination, urinary frequency, genital lesion or testicular pain. No urgency of urination, flank pain, inguinal swelling or problem with the foreskin. Able to void. Not voiding only small amounts. Sexual history is noncontributory. (Patient was having some lower abdominal discomfort this morning, and his assisted living facility did draw labs and a urinalysis. However, this afternoon, patient was noted to have bloody discharge in his Depends and assisted living facility sent him here to the emergency department for further evaluation.). Similar symptoms previously: None. Recent medical care: The patient was seen recently at this facility. REVIEW OF SYSTEMS No fever, chills, flank pain, abdominal pain or vomiting. No diarrhea, black stools, bloody stools, headache or sore throat. No blurred vision, chest pain, difficulty breathing, cough or joint pain. No skin rash or back pain. The patient has had hematuria. All systems otherwise negative, except as recorded above. PAST HISTORY Problems: Benign Prostatic Hypertrophy. Depression. Vit D deficency. Vit B deficiency. Sepsis. C. Difficile Colitis. CVA - Cerebrovascular Accident. Pressure Ulcer. Constipation. Syncope. Renal Insufficiency. Immunizations. Hypercholesterolemia. Parkinson's Disease. Hypertension. Additional Surgeries: Hernia Repair. Quadruple bypass [2001]. Vasectomy. Medications: Pantoprazole Sodium Oral 40 mg, daily. Probiotic Oral. Cholecalciferol Oral (Tablet 2000 unit) 1 tablet, daily. Tamsulosin HCl Oral (Capsule 0.4 mg) 1 capsule, daily. Trospium Chloride Oral (Tablet 20 mg) 1 tablet, twice daily. Zofran Oral 4 mg, as needed. Acetaminophen Oral 650 mg, as needed. Amantadine HCl Oral 100 mg, 2x a day. ASA Oral 81 mg, daily. Atorvastatin Calcium Oral 80 mg, daily. Biscolax Rectal, as needed. Fludrocortisone Acetate Oral (Tablet 0.1 mg) 1 tablet, daily. Metoprolol Tartrate Oral (Tablet 25 mg) 1/2 tablet, 2 times daily. Milk of Magnesia Oral 30 ml, as needed. Nitroglycerin Sublingual (Tablet Sublingual 0.4 mg) 1 tablet, 3x a day as needed. [place] 3 Oral (Capsule 1000 mg) 1 capsule, daily. Pimavaserin 34 mg, daily. Potassium Oral 20 mEq, daily. Psyllium Oral 1 packet, daily. ROPINIRole HCl Oral (Tablet 2 mg) 1 tablet, 5 x daily. Rytary 36.25-145 mg - 3 caps, 3x a day. Saline enema, PRN. Sertraline HCl Oral 50 mg, daily. Allergies: No Known Drug Allergy. SOCIAL HISTORY Never smoker. No alcohol use or drug use. ADDITIONAL NOTES The nursing notes have been reviewed. PHYSICAL EXAM Vital Signs: 07/28/2016 20:46 BP: 156/79. HR: 81. RR: 20. O2 saturation: 94%. Temp: 98.3 F. Pain level now: 0/10. Have been reviewed. Appearance: Alert. Oriented X3. No acute distress. ENT: Normal external inspection. Neck: Neck supple. CVS: Heart sounds normal. Respiratory: No respiratory distress. Breath sounds normal. Abdomen: Soft and nontender. Back: Normal external inspection. : Normal genitalia. (PT has bloody output into his Depends.). Skin: Skin warm and dry. Normal skin color. No rash. Normal skin turgor. Extremities: No lower extremity edema. Neuro: No motor deficit. No sensory deficit. (Pt answers questions appropriately.). LABS, X-RAYS, AND EKG Laboratory Tests: UA-Culture if indicated: (ALANNA: 07/28/2016 21:47) ( MsgRcvd 07/28/2016 22:24) Final results Test Result Flag Units (Reference) URINE COLOR RED URINE APPEARANCE CLOUDY URINE GLUCOSE NEGATIVE (NEGATIVE) URINE BILIRUBIN NEGATIVE (NEGATIVE) URINE KETONE NEGATIVE (NEGATIVE) URINE SPECIFIC GRAVITY 1.020 (1.010-1.030) URINE PH 8.5 H (5.0-8.0) URINE PROTEIN 2+ (NEGATIVE) URINE UROBILINOGEN 0.2 EU/dL (0.2-1.0) URINE NITRITE POSITIVE (NEGATIVE) URINE BLOOD 3+ (NEGATIVE) URINE LEUK ESTERASE POSITIVE (NEGATIVE) URINE RBC >100 rbc/hpf (0-1) URINE WBC 10-15 wbc/hpf (0-1) URINE EPITHELIAL CELLS RARE EPI/hpf (0-5) URINE BACTERIA MANY (4+) (NONE SEEN) URINE COMMENT CULTURE INDICATED URINE CULTURES ARE SET-UP BASED ON THE FOLLOWING CRITERIA:POSITIVE NITRITEPOSITIVE LEUKOCYTE ESTERASEGREATER THAN 10 WHITE BLOOD CELLSMODERATE (2+) OR GREATER BACTERIA CBC w Diff: (ALANNA: 07/28/2016 21:47) ( MsgRcvd 07/28/2016 22:02) Final results Test Result Flag Units (Reference) WHITE BLOOD COUNT 5.7 K/uL (4.5-11.5) RED BLOOD COUNT 4.35 L M/uL (4.50-5.90) HEMOGLOBIN 13.2 L gm/dL (13.5-17.5) HEMATOCRIT 39.8 L % (41.0-53.0) MEAN CELL VOLUME 92 fL (80-100) MEAN CORPUSCULAR HGB 30 pg (26-34) MEAN CORPUSCULAR HGB CONC 33 g/dL (31-37) RED CELL DISTRIBUTION WIDTH 15.5 H % (11.6-14.8) PLATELET COUNT 142 L K/uL (150-400) NEUTROPHIL % 71.9 % (50-75) LYMPH % 13.0 L % (25-40) MONO % 14.8 H % (3-14) EOSINOPHIL % 0.2 % (0-4) BASOPHIL % 0.1 % (0-2) CMP: (ALANNA: 07/28/2016 21:47) ( MsgRcvd 07/28/2016 22:29) Final results Test Result Flag Units (Reference) GLUCOSE 114 H mg/dL (70-110) BUN 19 H mg/dL (7-18) CREATININE 1.1 mg/dL (0.6-1.3) Estimated GFR >60 mL/min Estimated GFR- >60 mL/min Note: Persistent reduction over 3 months in eGFR<60 mL/min/1.73 m2 defines CKD. Patients with eGFR values>=60 mL/min/1.73 m2 may also have CKD if evidence ofpersistent proteinuria. Additional information may be foundat www.kidney.org. SODIUM 137 mmol/L (136-145) POTASSIUM 3.5 mmol/L (3.5-5.1) CHLORIDE 99 mmol/L (98-107) CARBON DIOXIDE 29 mmol/L (21-32) CALCIUM 8.6 mg/dL (8.5-10.1) TOTAL PROTEIN 7.6 g/dL (6.4-8.2) ALBUMIN 2.8 L g/dL (3.3-5.0) BILIRUBIN, TOTAL 0.8 mg/dL (0.0-1.0) ALKALINE PHOSPHATASE 73 U/L (46-116) AST (SGOT) 12 L U/L (15-37) ALT (SGPT) 10 L U/L (12-78) . Pulse Oximetry: 07/28/2016 20:46 O2 saturation: 94%. (FIO2 - room air). Interpretation: normal. PROGRESS AND PROCEDURES Course of Care: Pt was guaiac -, and I did feel he likely had hematuria, causing the blood in his diaper. I suspected a UTI, and pt was worked up. He was otherwise stable and well-appearing. Laboratory studies were obtained, as well as a urinalysis, and patient was found to have a hemorrhagic UTI. He was started on antibiotics for this. As he was otherwise stable I did feel he wasable to be managed as an outpatient. Patient counseled in person regarding the patient's stable condition, test results, diagnosis and need for follow-up. Concerns were addressed. Old medical records reviewed. Disposition: Discharged. Condition: stable. CLINICAL IMPRESSION Acute urinary tract infection with cystitis and hematuria. INSTRUCTIONS Drink plenty of fluids. Warnings: GENERAL WARNINGS: Return or contact your physician immediately if your condition worsens or changes unexpectedly, if not improving as expected, or if other problems arise. Your Current Medications: CONTINUE TAKING THE FOLLOWING MEDICATIONS: Acetaminophen Oral : 650 mg, prn. Amantadine HCl Oral : 100 mg 2x a day. ASA Oral : 81 mg daily. Atorvastatin Calcium Oral : 80 mg daily. Biscolax Rectal : prn. Cholecalciferol Oral : Tablet 2000 unit, 1 tablet daily. Fludrocortisone Acetate Oral : Tablet 0.1 mg, 1 tablet daily. Metoprolol Tartrate Oral : Tablet 25 mg, 1/2 tablet 2 times daily. Milk of Magnesia Oral : 30 ml, prn. Nitroglycerin Sublingual : Tablet Sublingual 0.4 mg, 1 tablet 3x a day, prn. [place] 3 Oral : Capsule 1000 mg, 1 capsule daily. Pantoprazole Sodium Oral : 40 mg daily. Pimavaserin* : 34 mg daily. Potassium Oral : 20 mEq daily. Probiotic Oral. Psyllium Oral : 1 packet daily. ROPINIRole HCl Oral : Tablet 2 mg, 1 tablet 5 x daily. Rytary* : 36.25-145 mg - 3 caps 3x a day. Saline enema* : PRN. Sertraline HCl Oral : 50 mg daily. Tamsulosin HCl Oral : Capsule 0.4 mg, 1 capsule daily. Trospium Chloride Oral : Tablet 20 mg, 1 tablet twice daily. Zofran Oral : 4 mg, prn. Prescription Medications: Cipro 500 mg: take 1 tab orally every 12 hours for 7 days. No refills. Substitution is permissible. Follow-up: Follow up with your doctor in seven days if not better. Understanding of the discharge instructions verbalized by patient. (Electronically signed by Christie Beauchamp MD 07/29/2016 0:23)
--- NOTE | 2016-07-28 22:38 | ED ORDER SUMMARY ---
..... Patient: URBANO CHANDLER OrderSheet [facility] VisitID: [id number] [place] [address] 80y, M Registration Date/Time: 07/28/2016 ORDER SHEET Weight: 74.8 kg (stated) Allergies: No Known Drug Allergy GENERAL ORDERS: UA-Culture if indicated Urgent (20:54 07/28/2016 Rebecca Damon) (Ack 20:59 AMcQuoid ER Tech1) (22:39 KPage-Natalyn R.N.) CBC w Diff Urgent (21:32 07/28/2016 Ena JUÁREZ) (Ack 21:33 AMcQuoid ER Tech1) (22:39 KPage-Emmanuel R.N.) CMP Urgent (21:32 07/28/2016 Ena JUÁREZ) (Ack 21:33 AMcQuoid ER Tech1) (22:39 KPage-Kuchan R.N.) MEDICATION ORDERS: Levaquin PO 500 mg (NOW) (22:33 07/28/2016 Ena JUÁREZ) (Ack 23:03 JDeElena R.N.) (23:21 KPadior-Emmanuel R.N.) IV FLUIDS: IV NS : initial bolus 500 mL (1000 mL/hr), then none - (NOW) (21:31 07/28/2016 Ena JUÁREZ) (Ack 21:47 HSoule) (21:53 HSoule) Zofran IV 4 mg (NOW) (21:32 07/28/2016 Ena JUÁREZ) (Ack 21:47 HSoule) (21:54 HSoule) ORDER SHEET NOTES: [Electronically signed by Christie Beauchamp MD (00:23 07/29/2016)] [Electronically signed by Vivian David R.N. (00:37 07/29/2016)] [Electronically locked/signed by Vivian David R.N. (00:37 07/29/2016)]
--- NOTE | 2016-07-28 22:38 | ED NURSING NOTES ---
Clinical Report - Nurses [facility] [address] [place] [address] 07/28/2016 20:41 Patient: URBANO CHANDLER TRIAGE Triage time 20:46 Jul 28 2016. Chief Complaint: (pt sent from [facility] for r/o UTI- labs drawn at [facility] at 1900 as well as UA sent, blood found in pts brief, Dr Ross gave orders to transport to ED, pt denies pain). No acute distress. SEPSIS SCREEN: Sepsis Screen: negative. Infection suspected/documented. Respiratory rate greater than 20. --20:59 Vivian David R.N. 20:46 07/28/16. BP: 156/79. HR: 81. RR: 20. O2 saturation: 94%. Temp: 98.3 F. Pain level now: 0/10. --20:59 Vivian David R.N. Weight: 74.8 kg stated. Height/Length: 68 inches Per Patient. BMI: 25.1. --20:57 Vivian David R.N. Medications Acetaminophen Oral 650 mg, as needed. Amantadine HCl Oral 100 mg, 2x a day. ASA Oral 81 mg, daily. Atorvastatin Calcium Oral 80 mg, daily. Biscolax Rectal, as needed. Fludrocortisone Acetate Oral (Tablet 0.1 mg) 1 tablet, daily. Metoprolol Tartrate Oral (Tablet 25 mg) 1/2 tablet, 2 times daily. Milk of Magnesia Oral 30 ml, as needed. Nitroglycerin Sublingual (Tablet Sublingual 0.4 mg) 1 tablet, 3x a day as needed. [place] 3 Oral (Capsule 1000 mg) 1 capsule, daily. Pimavaserin 34 mg, daily. Potassium Oral 20 mEq, daily. Psyllium Oral 1 packet, daily. ROPINIRole HCl Oral (Tablet 2 mg) 1 tablet, 5 x daily. Rytary 36.25-145 mg - 3 caps, 3x a day. Saline enema, PRN. Sertraline HCl Oral 50 mg, daily. --21:07 Vivian David R.N. Tamsulosin HCl Oral (Capsule 0.4 mg) 1 capsule, daily. Trospium Chloride Oral (Tablet 20 mg) 1 tablet, twice daily. Zofran Oral 4 mg, as needed. --21:07 Vivian David R.N. Cholecalciferol Oral (Tablet 2000 unit) 1 tablet, daily. --21:08 Vivian David R.N. Probiotic Oral. --21:08 Vivian David R.N. Pantoprazole Sodium Oral 40 mg, daily. --21:09 Vivian David R.N. Medication/allergy information source: the patient's assisted record (MAY from [facility]). --20:59 Vivian David R.N. Allergies No Known Drug Allergy. --21:07 Vivian David R.N. History Arrived by EMS, and from a assisted (s). Historian: (ems). This started today. PAST MEDICAL HX: UTI. Immunizations: status is unknown. SOCIAL HX: Never smoker. No alcohol use or drug use. ABUSE ASSESSMENT: No report of abuse. SELF HARM ASSESSMENT: A self harm assessment was performed. The patient answered "no" to the question "Have you recently felt down, depressed, or hopeless?", "Have you noticed less interest or pleasure in doing things?", "Do you have thoughts of harming or killing yourself?", "Are you here because you tried to hurt yourself?", "Have you ever tried to hurt yourself before today?", "Have you recently had thoughts about harming or killing others?" and "Do you have any dangerous items in your possession?". NUTRITIONAL RISK ASSESSMENT: The nutritional risk assessment revealed no deficiencies. FALL RISK ASSESSMENT: Fall risk assessment completed. Risk factors identified include patient age greater than 65 years, history of fall and impairment of mobility. Fall interventions initiated. Side rails up x2. Brakes on Bed in low position. Patient identified as a fall risk by ID band. Call light in reach of patient. Instructed not to get up without assistance. FUNCTIONAL ASSESSMENT: Functional assessment performed: requires assistance with the activities of daily living; uses walker- this mobility impairment is an ongoing problem. MAYO FALL SCALE: Mayo Fall Scale Score: 70 (45 or greater = High Risk). The patient has a history of falling (immediate or within the last 3 months), a secondary diagnosis. The patient's gait is weak and impaired during transfer. --20:59 Vivian David R.N. PROBLEMS: Fall. Nausea. Benign Prostatic Hypertrophy. Orthostatic hypotension. Depression. Vit D deficency. Vit B deficiency. Hypokalemia. Sepsis. C. Difficile Colitis. CVA - Cerebrovascular Accident. Pressure Ulcer. Wound to rt foot . Constipation. Hypovolemia. Hypotension. Syncope. Renal Insufficiency. UTI - Urinary Tract Infection. Urinary Retention. Hypercholesterolemia. Parkinson's Disease. Hypertension. --20:55 Vivian David R.N. ADDITIONAL SURGERIES: Hernia Repair. 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 Vasectomy. --20:55 Vivian David R.N. Interventions ID band on patient. --20:59 Vivian David R.N. PHYSICAL ASSESSMENT To room via stretcher. Patient gowned. GENERAL / NEURO / PSYCH: Alert. Oriented X 4. Appears in no acute distress. HEENT: Mucous membranes are pink. RESPIRATORY: Respirations not labored. Breath sounds within normal limits. CVS: Normal heart rate and rhythm. Capillary refill less than 2 seconds. GI / : Abdomen soft and nontender. Bowel sounds within normal limits. SKIN: Skin is warm and dry. --21:01 Vivian David R.N. NURSING PROGRESS NOTES Pulse oximeter and NIBP monitor placed on patient; monitor alarms on. Patient gowned. Head of bed elevated. Two patient identifiers checked. Call light placed in reach. Side rails up x 2. Bed placed in lowest position. Brakes of bed on. Patient ready for evaluation- chart flagged. Patient waiting for evaluation. --21:02 Vivian David R.N. 21:24 07/28/16. In/out catheterization. During procedure hand hygiene observed and sterile equipment and aseptic technique used. Return of red-colored bloody cloudy urine. He tolerated procedure well (first drainage out was red, urine color changed to yellow and cloudy upon completion). ( pts attends changed, MD brought in to bedside to view, red, thick "jelly like" liquid in attends, MD did rectal exam that was negative, while pt rolled rectal temp taken). --21:56 Vivian David R.N. 21:38 07/28/2016 Site #1 started via IV in the left forearm with an 20g angiocath, with aseptic technique and good blood return; one attempt. Blood drawn: rainbow set. Labeled in the presence of the patient and sent to the lab. Saline lock flushed with 10 mL saline. --21:53 Eduardo Clairenah 21:53 07/28/2016 Started bag #1 1000 mL IV Fluids IV NS (Saline); at 1000 mL/hr over 30 minute(s) via site #1 via IV pump. Allergies verified and confirmed 5 rights. IV patency established. IV site checked: no pain, redness, or swelling. IV flushed thoroughly pre- and post-medication administration. --21:53 Shanthi Claire 21:54 07/28/2016 Zofran (Ondansetron HCl) IVP 4 mg given over 2 minute(s) via site #1. Allergies verified and confirmed 5 rights. IV patency established. IV site checked: no pain, redness, or swelling. IV flushed thoroughly pre- and post-medication administration. IVP given by RN. --21:54 Shanthi Claire 21:54 07/28/16. Temp: 99.2 F (rectal). --21:56 Vivian David R.N. 22:25 07/28/2016 IV Fluids IV NS Discontinued: bag #1 STOPPED. Total amount infused: 500 mL. IV patency established. IV site checked: no pain, redness, or swelling. IV flushed thoroughly. --22:25 Monica Persaud R.N. 23:06 07/28/2016 Levaquin (Levofloxacin) PO 500 mg given. Allergies verified and confirmed 5 rights. --23:21 Vivian David R.N. DISPOSITION / DISCHARGE Report was given to a nurse via a phone call. Report included patient's care, treatment, medications, reviewed medication reconcilliation, and condition (including any recent changes or anticipated changes). All questions were answered. Report was acknowledged. ([facility] at [facility]). --23:25 Vivian David R.N. 23:31 07/28/2016 Site #1 removed upon discharge. Bandaid applied. --23:31 Vivian David R.N. Departure time: 0014. Condition at departure: unchanged. Discharge instructions provided and reviewed with the patient (ems). Reviewed medication(s) information (rx in packet, Bronwyn nurse at [facility] aware). Patient verbalized understanding. Written instructions provided in Belarusian. Verbalized understanding (ems and nurse at [facility]). The patient was discharged by the physician. He was discharged to the assisted. He left the Emergency Department via ambulance and on a stretcher. ( upon dispo pts attends changed, red jelly like drainage cleansed, aware, report given to [facility], pt [facility] to [facility], pain free, a/o x 3,). --00:36 Vivian David R.N. 00:32 07/29/16. BP: 151/96. HR: 79. RR: 17. O2 saturation: 96%. Temp: 98.4 F (oral). Pain level now: 0/10. --00:36 Vivian David R.N. Locked/Released at 07/29/2016 0:37 by Vivian David R.N.
--- NOTE | 2016-07-28 22:38 | ED ORDER SUMMARY ---
..... Patient: URBANO CHANDLER OrderSheet [facility] VisitID: [id number] [place] [address] 80y, M Registration Date/Time: 07/28/2016 ORDER SHEET Weight: 74.8 kg (stated) Allergies: No Known Drug Allergy GENERAL ORDERS: UA-Culture if indicated Urgent (20:54 07/28/2016 Rebecca Damon) (Ack 20:59 AMcQuoid ER Tech1) (22:39 KPage-Natlayn R.N.) CBC w Diff Urgent (21:32 07/28/2016 Ena JUÁREZ) (Ack 21:33 AMcQuoid ER Tech1) (22:39 KPage-Emmanuel R.N.) CMP Urgent (21:32 07/28/2016 Ena JUÁRZE) (Ack 21:33 AMcQuoid ER Tech1) (22:39 KPage-Kuchan R.N.) MEDICATION ORDERS: Levaquin PO 500 mg (NOW) (22:33 07/28/2016 Ena JUÁREZ) (Ack 23:03 JDeElena R.N.) (23:21 KPadior-Emmanuel R.N.) IV FLUIDS: IV NS : initial bolus 500 mL (1000 mL/hr), then none - (NOW) (21:31 07/28/2016 Ena JUÁREZ) (Ack 21:47 HSoule) (21:53 HSoule) Zofran IV 4 mg (NOW) (21:32 07/28/2016 Ena JUÁREZ) (Ack 21:47 HSoule) (21:54 HSoule) ORDER SHEET NOTES: [Electronically signed by Christie Beauchamp MD (00:23 07/29/2016)] [Electronically signed by Vivian David R.N. (00:37 07/29/2016)] [Electronically locked/signed by Vivian David R.N. (00:37 07/29/2016)]
--- NOTE | 2016-07-28 22:38 | ED NURSING NOTES ---
Clinical Report - Nurses [facility] [address] [place] [address] 07/28/2016 20:41 Patient: URBANO CHANDLER TRIAGE Triage time 20:46 Jul 28 2016. Chief Complaint: (pt sent from [facility] for r/o UTI- labs drawn at [facility] at 1900 as well as UA sent, blood found in pts brief, Dr Ross gave orders to transport to ED, pt denies pain). No acute distress. SEPSIS SCREEN: Sepsis Screen: negative. Infection suspected/documented. Respiratory rate greater than 20. --20:59 Vivian David R.N. 20:46 07/28/16. BP: 156/79. HR: 81. RR: 20. O2 saturation: 94%. Temp: 98.3 F. Pain level now: 0/10. --20:59 Vivian David R.N. Weight: 74.8 kg stated. Height/Length: 68 inches Per Patient. BMI: 25.1. --20:57 Vivian David R.N. Medications Acetaminophen Oral 650 mg, as needed. Amantadine HCl Oral 100 mg, 2x a day. ASA Oral 81 mg, daily. Atorvastatin Calcium Oral 80 mg, daily. Biscolax Rectal, as needed. Fludrocortisone Acetate Oral (Tablet 0.1 mg) 1 tablet, daily. Metoprolol Tartrate Oral (Tablet 25 mg) 1/2 tablet, 2 times daily. Milk of Magnesia Oral 30 ml, as needed. Nitroglycerin Sublingual (Tablet Sublingual 0.4 mg) 1 tablet, 3x a day as needed. [place] 3 Oral (Capsule 1000 mg) 1 capsule, daily. Pimavaserin 34 mg, daily. Potassium Oral 20 mEq, daily. Psyllium Oral 1 packet, daily. ROPINIRole HCl Oral (Tablet 2 mg) 1 tablet, 5 x daily. Rytary 36.25-145 mg - 3 caps, 3x a day. Saline enema, PRN. Sertraline HCl Oral 50 mg, daily. --21:07 Vivian David R.N. Tamsulosin HCl Oral (Capsule 0.4 mg) 1 capsule, daily. Trospium Chloride Oral (Tablet 20 mg) 1 tablet, twice daily. Zofran Oral 4 mg, as needed. --21:07 Vivian David R.N. Cholecalciferol Oral (Tablet 2000 unit) 1 tablet, daily. --21:08 Vivian David R.N. Probiotic Oral. --21:08 Vivian David R.N. Pantoprazole Sodium Oral 40 mg, daily. --21:09 Vivian David R.N. Medication/allergy information source: the patient's prison record (MAY from [facility]). --20:59 Vivian David R.N. Allergies No Known Drug Allergy. --21:07 Vivian David R.N. History Arrived by EMS, and from a prison (s). Historian: (ems). This started today. PAST MEDICAL HX: UTI. Immunizations: status is unknown. SOCIAL HX: Never smoker. No alcohol use or drug use. ABUSE ASSESSMENT: No report of abuse. SELF HARM ASSESSMENT: A self harm assessment was performed. The patient answered "no" to the question "Have you recently felt down, depressed, or hopeless?", "Have you noticed less interest or pleasure in doing things?", "Do you have thoughts of harming or killing yourself?", "Are you here because you tried to hurt yourself?", "Have you ever tried to hurt yourself before today?", "Have you recently had thoughts about harming or killing others?" and "Do you have any dangerous items in your possession?". NUTRITIONAL RISK ASSESSMENT: The nutritional risk assessment revealed no deficiencies. FALL RISK ASSESSMENT: Fall risk assessment completed. Risk factors identified include patient age greater than 65 years, history of fall and impairment of mobility. Fall interventions initiated. Side rails up x2. Brakes on Bed in low position. Patient identified as a fall risk by ID band. Call light in reach of patient. Instructed not to get up without assistance. FUNCTIONAL ASSESSMENT: Functional assessment performed: requires assistance with the activities of daily living; uses walker- this mobility impairment is an ongoing problem. MAYO FALL SCALE: Mayo Fall Scale Score: 70 (45 or greater = High Risk). The patient has a history of falling (immediate or within the last 3 months), a secondary diagnosis. The patient's gait is weak and impaired during transfer. --20:59 Vivian David R.N. PROBLEMS: Fall. Nausea. Benign Prostatic Hypertrophy. Orthostatic hypotension. Depression. Vit D deficency. Vit B deficiency. Hypokalemia. Sepsis. C. Difficile Colitis. CVA - Cerebrovascular Accident. Pressure Ulcer. Wound to rt foot . Constipation. Hypovolemia. Hypotension. Syncope. Renal Insufficiency. UTI - Urinary Tract Infection. Urinary Retention. Hypercholesterolemia. Parkinson's Disease. Hypertension. --20:55 Vivian David R.N. ADDITIONAL SURGERIES: Hernia Repair. 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 Vasectomy. --20:55 Vivian David R.N. Interventions ID band on patient. --20:59 Vivian David R.N. PHYSICAL ASSESSMENT To room via stretcher. Patient gowned. GENERAL / NEURO / PSYCH: Alert. Oriented X 4. Appears in no acute distress. HEENT: Mucous membranes are pink. RESPIRATORY: Respirations not labored. Breath sounds within normal limits. CVS: Normal heart rate and rhythm. Capillary refill less than 2 seconds. GI / : Abdomen soft and nontender. Bowel sounds within normal limits. SKIN: Skin is warm and dry. --21:01 Vivian David R.N. NURSING PROGRESS NOTES Pulse oximeter and NIBP monitor placed on patient; monitor alarms on. Patient gowned. Head of bed elevated. Two patient identifiers checked. Call light placed in reach. Side rails up x 2. Bed placed in lowest position. Brakes of bed on. Patient ready for evaluation- chart flagged. Patient waiting for evaluation. --21:02 Viivan David R.N. 21:24 07/28/16. In/out catheterization. During procedure hand hygiene observed and sterile equipment and aseptic technique used. Return of red-colored bloody cloudy urine. He tolerated procedure well (first drainage out was red, urine color changed to yellow and cloudy upon completion). ( pts attends changed, MD brought in to bedside to view, red, thick "jelly like" liquid in attends, MD did rectal exam that was negative, while pt rolled rectal temp taken). --21:56 Vivian David R.N. 21:38 07/28/2016 Site #1 started via IV in the left forearm with an 20g angiocath, with aseptic technique and good blood return; one attempt. Blood drawn: rainbow set. Labeled in the presence of the patient and sent to the lab. Saline lock flushed with 10 mL saline. --21:53 Eduardo Clairenah 21:53 07/28/2016 Started bag #1 1000 mL IV Fluids IV NS (Saline); at 1000 mL/hr over 30 minute(s) via site #1 via IV pump. Allergies verified and confirmed 5 rights. IV patency established. IV site checked: no pain, redness, or swelling. IV flushed thoroughly pre- and post-medication administration. --21:53 Shanthi Claire 21:54 07/28/2016 Zofran (Ondansetron HCl) IVP 4 mg given over 2 minute(s) via site #1. Allergies verified and confirmed 5 rights. IV patency established. IV site checked: no pain, redness, or swelling. IV flushed thoroughly pre- and post-medication administration. IVP given by RN. --21:54 Shanthi Claire 21:54 07/28/16. Temp: 99.2 F (rectal). --21:56 Vivian David R.N. 22:25 07/28/2016 IV Fluids IV NS Discontinued: bag #1 STOPPED. Total amount infused: 500 mL. IV patency established. IV site checked: no pain, redness, or swelling. IV flushed thoroughly. --22:25 Monica Persaud R.N. 23:06 07/28/2016 Levaquin (Levofloxacin) PO 500 mg given. Allergies verified and confirmed 5 rights. --23:21 Vivian David R.N. DISPOSITION / DISCHARGE Report was given to a nurse via a phone call. Report included patient's care, treatment, medications, reviewed medication reconcilliation, and condition (including any recent changes or anticipated changes). All questions were answered. Report was acknowledged. ([facility] at [facility]). --23:25 Vivian David R.N. 23:31 07/28/2016 Site #1 removed upon discharge. Bandaid applied. --23:31 Vivian David R.N. Departure time: 0014. Condition at departure: unchanged. Discharge instructions provided and reviewed with the patient (ems). Reviewed medication(s) information (rx in packet, [place] nurse at [facility] aware). Patient verbalized understanding. Written instructions provided in Telugu. Verbalized understanding (ems and nurse at [facility]). The patient was discharged by the physician. He was discharged to the prison. He left the Emergency Department via ambulance and on a stretcher. ( upon dispo pts attends changed, red jelly like drainage cleansed, aware, report given to [facility], pt s to [facility], pain free, a/o x 3,). --00:36 Vivian David R.N. 00:32 07/29/16. BP: 151/96. HR: 79. RR: 17. O2 saturation: 96%. Temp: 98.4 F (oral). Pain level now: 0/10. --00:36 Vivian David R.N. Locked/Released at 07/29/2016 0:37 by Vivian David R.N.
--- NOTE | 2016-07-29 00:38 | ED MAR SUMMARY ---
..... Medication Administration Record [facility] [address] [place] [address] Patient: URBANO CHANDLER Visit ID: [id number] 80y, M Weight: 74.8 kg Height/Length: 68 in BMI: 25.1 ALLERGIES: No Known Drug Allergy Start 21:53 07/28/2016 Shanthi Claire,, Stop 22:25 07/28/2016 Monica Persaud RGreer Medication Administered: IV NS (SALINE), Dose: IV Fluids over 30 minute(s), Rate: 1000 mL/hr, Dispensed: 1000 mL bag, Site: #1 left forearm. Medication Ordered: IV NS : initial bolus 500 mL (1000 mL/hr), then none - (NOW). Given 21:54 07/28/2016 Shanthi Claire, Medication Administered: ZOFRAN [IVP] (ONDANSETRON HCL), Dose: 4 mg IVP over 2 minute(s), Site: #1 left forearm. Medication Ordered: Zofran IV 4 mg (NOW). Given 23:06 07/28/2016 Vivian David RGreer Medication Administered: LEVAQUIN [PO] (LEVOFLOXACIN), Dose: 500 mg PO. Medication Ordered: Levaquin PO 500 mg (NOW).
--- NOTE | 2016-07-29 00:38 | ED MED RECONCILIATION SUMMARY ---
Patient: URBANO CHANDLER Medication Reconciliation Report [facility] VisitID: [id number] [address] [place] [address] 80y, M Registration Date/Time: 07/28/2016 Weight: 74.8 kg Height/Length: 68 in. BMI: 25.1 ALLERGIES: No Known Drug Allergy The patient's Home Medications are listed below: CONTINUE TAKING THE FOLLOWING MEDICATIONS: Acetaminophen Oral 650 mg Amantadine HCl Oral 100 mg, 2x a day ASA Oral 81 mg, daily Atorvastatin Calcium Oral 80 mg, daily Biscolax Rectal Cholecalciferol Oral (2000 unit) 1 tablet, daily Fludrocortisone Acetate Oral (0.1 mg) 1 tablet, daily Metoprolol Tartrate Oral (25 mg) 1/2 tablet, 2 times daily Milk of Magnesia Oral 30 ml Nitroglycerin Sublingual (0.4 mg) 1 tablet, 3x a day [place] 3 Oral (1000 mg) 1 capsule, daily Pantoprazole Sodium Oral 40 mg, daily Pimavaserin 34 mg, daily Potassium Oral 20 mEq, daily Probiotic Oral Psyllium Oral 1 packet, daily ROPINIRole HCl Oral (2 mg) 1 tablet, 5 x daily Rytary 36.25-145 mg - 3 caps, 3x a day Saline enema, PRN Sertraline HCl Oral 50 mg, daily Tamsulosin HCl Oral (0.4 mg) 1 capsule, daily Trospium Chloride Oral (20 mg) 1 tablet, twice daily Zofran Oral 4 mg The source(s) of the original Home Medication information: patient's [facility] record [facility] from [facility] The following Medications were given to the patient in the Emergency Department: IV NS IV Fluids bolus 0, then 1000 mL/hr, administered: 07/28/2016 9:53:00 PM Zofran [IVP] IVP 4 mg, administered: 07/28/2016 9:54:00 PM Levaquin [PO] PO 500 mg, administered: 07/28/2016 11:06:00 PM The following Medications were prescribed to the patient: Cipro 500 mg: take 1 tab orally every 12 hours for 7 days. No refills. Substitution is permissible. -- Christie Beauchamp MD
--- NOTE | 2016-07-29 00:38 | ED DISCHARGE INSTRUCTIONS ---
Patient: URBANO CHANDLER General Instructions [facility] VisitID: [id number] [place] [address] 80y, M Registration Date/Time: 07/28/2016 Acute urinary tract infection with cystitis and hematuria. INSTRUCTIONS Drink plenty of fluids. Warnings: GENERAL WARNINGS: Return or contact your physician immediately if your condition worsens or changes unexpectedly, if not improving as expected, or if other problems arise. Your Current Medications: CONTINUE TAKING THE FOLLOWING MEDICATIONS: Acetaminophen Oral : 650 mg, prn. Amantadine HCl Oral : 100 mg 2x a day. ASA Oral : 81 mg daily. Atorvastatin Calcium Oral : 80 mg daily. Biscolax Rectal : prn. Cholecalciferol Oral : Tablet 2000 unit, 1 tablet daily. Fludrocortisone Acetate Oral : Tablet 0.1 mg, 1 tablet daily. Metoprolol Tartrate Oral : Tablet 25 mg, 1/2 tablet 2 times daily. Milk of Magnesia Oral : 30 ml, prn. Nitroglycerin Sublingual : Tablet Sublingual 0.4 mg, 1 tablet 3x a day, prn. [place] 3 Oral : Capsule 1000 mg, 1 capsule daily. Pantoprazole Sodium Oral : 40 mg daily. Pimavaserin* : 34 mg daily. Potassium Oral : 20 mEq daily. Probiotic Oral. Psyllium Oral : 1 packet daily. ROPINIRole HCl Oral : Tablet 2 mg, 1 tablet 5 x daily. Rytary* : 36.25-145 mg - 3 caps 3x a day. Saline enema* : PRN. Sertraline HCl Oral : 50 mg daily. Tamsulosin HCl Oral : Capsule 0.4 mg, 1 capsule daily. Trospium Chloride Oral : Tablet 20 mg, 1 tablet twice daily. Zofran Oral : 4 mg, prn. Prescription Medications: Cipro 500 mg: take 1 tab orally every 12 hours for 7 days. No refills. Substitution is permissible. Follow-up: Follow up with your doctor in seven days if not better. Understanding of the discharge instructions verbalized by patient. ADDITIONAL INFORMATION Bladder Infection,Male (Adult) A bladder infection ("cystitis" or "UTI") usually causes a constant urge to urinate, and a burning when passing urine. Urine may be cloudy, smelly or dark. There may be also be pain in the lower abdomen. Cystitis in males is not common. It may be caused by a partial blockage in the urinary system that keeps the bladder from emptying completely. This is most often related to an enlarged prostate gland. Home Care: Drink lots of fluids (at least 6-8 glasses a day). This will flush the bacteria out of your bladder. Avoid sexual intercourse until your symptoms are gone. Avoid caffeine, alcohol, and spicy foods. They could irritate the bladder. A bladder infection is treated with antibiotics. You may also be given Pyridium (generic - phenazopyridine) to reduce burning with urination. This will cause urine to become a bright orange color, which can stain clothing. Follow Up with your doctor or this facility if ALL symptoms have not cleared within five days. It is important to keep your follow up appointment to discuss with your doctor the need for further tests of the urinary tract. Get Prompt Medical Attention if any of the following occur: Fever of 100.4F (38C) or higher, or as directed by your healthcare provider No improvement by the third day of treatment Increasing back or abdominal pain Repeated vomiting; unable to keep medicine down Weakness, dizziness or fainting You have been given the following additional information: Bladder Infection, Male (Adult) (Electronically signed by Christie Beauchamp MD 07/29/2016 0:23)
--- NOTE | 2016-07-29 00:38 | ED MAR SUMMARY ---
..... Medication Administration Record [facility] [address] [place] [address] Patient: URBANO CHANDLER Visit ID: [id number] 80y, M Weight: 74.8 kg Height/Length: 68 in BMI: 25.1 ALLERGIES: No Known Drug Allergy Start 21:53 07/28/2016 Shanthi Claire,, Stop 22:25 07/28/2016 Monica Persaud RGreer Medication Administered: IV NS (SALINE), Dose: IV Fluids over 30 minute(s), Rate: 1000 mL/hr, Dispensed: 1000 mL bag, Site: #1 left forearm. Medication Ordered: IV NS : initial bolus 500 mL (1000 mL/hr), then none - (NOW). Given 21:54 07/28/2016 Shanthi Claire, Medication Administered: ZOFRAN [IVP] (ONDANSETRON HCL), Dose: 4 mg IVP over 2 minute(s), Site: #1 left forearm. Medication Ordered: Zofran IV 4 mg (NOW). Given 23:06 07/28/2016 Vivian David RGreer Medication Administered: LEVAQUIN [PO] (LEVOFLOXACIN), Dose: 500 mg PO. Medication Ordered: Levaquin PO 500 mg (NOW).
--- NOTE | 2016-07-29 00:38 | ED MED RECONCILIATION SUMMARY ---
Patient: URBANO CHANDLER Medication Reconciliation Report [facility] VisitID: [id number] [address] [place] [address] 80y, M Registration Date/Time: 07/28/2016 Weight: 74.8 kg Height/Length: 68 in. BMI: 25.1 ALLERGIES: No Known Drug Allergy The patient's Home Medications are listed below: CONTINUE TAKING THE FOLLOWING MEDICATIONS: Acetaminophen Oral 650 mg Amantadine HCl Oral 100 mg, 2x a day ASA Oral 81 mg, daily Atorvastatin Calcium Oral 80 mg, daily Biscolax Rectal Cholecalciferol Oral (2000 unit) 1 tablet, daily Fludrocortisone Acetate Oral (0.1 mg) 1 tablet, daily Metoprolol Tartrate Oral (25 mg) 1/2 tablet, 2 times daily Milk of Magnesia Oral 30 ml Nitroglycerin Sublingual (0.4 mg) 1 tablet, 3x a day [place] 3 Oral (1000 mg) 1 capsule, daily Pantoprazole Sodium Oral 40 mg, daily Pim[place]erin 34 mg, daily Potassium Oral 20 mEq, daily Probiotic Oral Psyllium Oral 1 packet, daily ROPINIRole HCl Oral (2 mg) 1 tablet, 5 x daily Rytary 36.25-145 mg - 3 caps, 3x a day Saline enema, PRN Sertraline HCl Oral 50 mg, daily Tamsulosin HCl Oral (0.4 mg) 1 capsule, daily Trospium Chloride Oral (20 mg) 1 tablet, twice daily Zofran Oral 4 mg The source(s) of the original Home Medication information: patient's senior care record [facility] from [facility] The following Medications were given to the patient in the Emergency Department: IV NS IV Fluids bolus 0, then 1000 mL/hr, administered: 07/28/2016 9:53:00 PM Zofran [IVP] IVP 4 mg, administered: 07/28/2016 9:54:00 PM Levaquin [PO] PO 500 mg, administered: 07/28/2016 11:06:00 PM The following Medications were prescribed to the patient: Cipro 500 mg: take 1 tab orally every 12 hours for 7 days. No refills. Substitution is permissible. -- Christie Beauchamp MD
== END 2016-07-29 00:14 | disposition home or self-care (01) ==
LOC: ED SRH 20:40
DX: N30.01 Acute cystitis with hematuria (principal); I10 Essential (primary) hypertension; E78.00 Pure hypercholesterolemia, unspecified; Z86.73 Personal history of transient ischemic attack (TIA), and cerebral infarction without residual deficits; Z79.899 Other long term (current) drug therapy; Z79.82 Long term (current) use of aspirin
CPT/HCPCS: 90004; 90100; 90469; 95059

== ENCOUNTER 2016-08-18 10:55 | Emergency (ER) | payer OTHER ==
--- NOTE | 2016-08-18 13:37 | DIAGNOSTIC IMAGING REPORT ---
PROCEDURE: CT HEAD WITHOUT CONTRAST INDICATION: SYNCOPE TECHNIQUE: Axial CT images were acquired through the head. Coronal and sagittal reformations were created. COMPARISON: 06/24/2016, 11/20/2015, 12/08/2013 FINDINGS: Mild cerebral cortical atrophy. Mild hypodensity in the periventricular and subcortical white matter. Ill-defined subcortical white matter hypodensity right frontal lobe, chronic. No intracranial hemorrhage or extraaxial fluid collections. Ventricles are moderately prominent compared to the degree of cortical atrophy There is no mass, mass effect or midline shift. The leigh-white matter differentiation is normal. There is no edema. Minor calcific atherosclerosis of the intracranial internal carotid arteries. The calvarium is intact. The paranasal sinuses and mastoid air cells are normally aerated. The extracranial soft tissues and orbits are normal. IMPRESSION: 1. Mild chronic ventricular prominence, out of portion to the degree of mild cerebral cortical atrophy. Consider normal pressure hydrocephalus. No significant change compared to recent priors and mild increase compared to 12/08/2013. 2. Age related involutional and chronic focal right frontal white matter changes. 3. Findings discussed with Dr. Almanza at [address] scans at this facility use dose modulation, iterative reconstruction, and/or weight-based dosing when appropriate to reduce radiation dose to as low as reasonably achievable.
--- NOTE | 2016-08-18 14:08 | DIAGNOSTIC IMAGING REPORT ---
PROCEDURE: XR CHEST 1 VIEW INDICATION: SYNCOPE TECHNIQUE: Single view chest. 1257 hours COMPARISON: 06/01/2016 FINDINGS: Post CABG with median sternotomy wires and surgical clips present. Normal sized heart. No central vascular congestion. Elevated right hemidiaphragm secondary to gaseous distention of the underlying colon. The left lung base is not well seen secondary to patient position. No significant effusion or pneumothorax. Stable osseous structures. IMPRESSION: 1. The visualized lung wilson are clear. 2. Post CABG without evidence of acute CHF. 3. 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
--- NOTE | 2016-08-18 15:52 | ED CLINICAL REPORT ---
Clinical Report - Physicians/Mid Levels [facility] [address] [place] [address] 08/18/2016 10:56 Patient: URBANO CHANDLER Time Seen: 11:09. Arrived- By private vehicle. Historian- patient. HISTORY OF PRESENT ILLNESS Chief Complaint: SYNCOPE. The patient has recovered. It was abrupt in onset. This occurred just prior to arrival. Event was witnessed. The patient had no preceding symptoms. This did not occur during exertion. At time of event, he was sitting. The patient lost consciousness completely. No seizure activity. He was incontinent of urine (chronically). No preceding symptoms of light-headedness, nausea, dim vision, chest pain or warmth. No preceding symptoms of abdominal pain. Had a single episode. The episode lasted minutes. Currently he feels normal. Similar symptoms previously: None. REVIEW OF SYSTEMS No calf pain, chest pain, cough, difficulty breathing or pedal edema. No palpitations, abdominal pain, black stools, bloody stools or diarrhea. No nausea or vomiting. He has had constipation (chronically). He has had incontinence of urine (chronically). All systems otherwise negative, except as recorded above. PAST HISTORY Problems: Heart Disease. Fall. Nausea. Benign Prostatic Hypertrophy. Orthostatic hypotension. Depression. Vit D deficency. Hypokalemia. Sepsis. C. Difficile Colitis. CVA - Cerebrovascular Accident. Pressure Ulcer. Wound to rt foot . Constipation. Hypovolemia. Hypotension. Syncope. Renal Insufficiency. UTI - Urinary Tract Infection. Urinary Retention. Hypercholesterolemia. Parkinson's Disease. Hypertension. Additional Surgeries: Hernia Repair. 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 Vasectomy. Medications: Rytary 36.25-145 mg - 3 caps, 3x a day. Saline enema, PRN. Sertraline HCl Oral 50 mg, daily. Tamsulosin HCl Oral (Capsule 0.4 mg) 1 capsule, daily. Trospium Chloride Oral (Tablet 20 mg) 1 tablet, twice daily. Zofran Oral 4 mg, as needed. Acetaminophen Oral 650 mg, as needed. Amantadine HCl Oral 100 mg, 2x a day. ASA Oral 81 mg, daily. Atorvastatin Calcium Oral 80 mg, daily. Biscolax Rectal, as needed. Cholecalciferol Oral (Tablet 2000 unit) 1 tablet, daily. Fludrocortisone Acetate Oral (Tablet 0.1 mg) 1 tablet, daily. Metoprolol Tartrate Oral (Tablet 25 mg) 1/2 tablet, 2 times daily. Milk of Magnesia Oral 30 ml, as needed. Nitroglycerin Sublingual (Tablet Sublingual 0.4 mg) 1 tablet, 3x a day as needed. Garfield 3 Oral (Capsule 1000 mg) 1 capsule, daily. Pantoprazole Sodium Oral 40 mg, daily. Pimavaserin 34 mg, daily. Potassium Oral 20 mEq, daily. Probiotic Oral. Psyllium Oral 1 packet, daily. ROPINIRole HCl Oral (Tablet 2 mg) 1 tablet, 5 x daily. Allergies: No Known Drug Allergy. SOCIAL HISTORY Never smoker. Occasional alcohol use. No drug use. [facility]ides in a [facility]. He lives with spouse. Has good social support. FAMILY HISTORY Denies family medical history. ADDITIONAL NOTES The nursing notes have been reviewed. PHYSICAL EXAM Vital Signs: 08/18/2016 11:15 BP: 121/74. HR: 81. RR: 20. O2 saturation: 96%. Temp: 97.7 F. Have been reviewed. Appearance: Alert. Eyes: Pupils equal, round and reactive to light. No nystagmus. Extraocular movements normal. ENT: Normal ENT inspection. Moist mucous membranes. Pharynx normal. Neck: Normal inspection. Neck supple. No carotid bruit. CVS: Normal heart rate and rhythm. Heart sounds normal. Respiratory: No respiratory distress. Breath sounds normal. Abdomen: Soft and nontender. No organomegaly. Back: Normal inspection. Skin: Skin warm and dry. Normal skin color. Normal skin turgor. Extremities: Extremities exhibit normal ROM. No calf tenderness. No lower extremity edema. Neuro: Oriented X 3. Speech normal. Cranial nerves normal (as tested). (tremulous). LABS, X-RAYS, AND EKG EKG: Rate: 86. Ectopic beats. Premature atrial contractions. EKG unchanged when compared with prior EKG. (no significant changes from a study of 01 June 2016). Chest X-ray: (IMPRESSION: 1. The visualized lung wilson are clear. 2. Post CABG without evidence of acute CHF. 3. Chronic gaseous distention of the colon in the epigastric region.). The X-rays were interpreted by the radiologist and contemporaneously by me. CT Head: (IMPRESSION: 1. Mild chronic ventricular prominence, out of portion to the degree of mild cerebral cortical atrophy. Consider normal pressure hydrocephalus. No significant change compared to recent priors and mild increase compared to 12/08/2013. 2. Age related involutional and chronic focal right frontal white matter changes.). The study was interpreted contemporaneously by me and discussed with the radiologist. Laboratory Tests: UA-Culture if indicated: (ALANNA: 08/18/2016 14:30) ( [facility] 08/18/2016 15:34) Final results Test Result Flag Units (Reference) URINE COLOR YELLOW URINE APPEARANCE CLEAR URINE GLUCOSE NEGATIVE (NEGATIVE) URINE BILIRUBIN NEGATIVE (NEGATIVE) URINE KETONE NEGATIVE (NEGATIVE) URINE SPECIFIC GRAVITY 1.015 (1.010-1.030) URINE PH 7.0 (5.0-8.0) URINE PROTEIN NEGATIVE (NEGATIVE) URINE UROBILINOGEN 0.2 EU/dL (0.2-1.0) URINE NITRITE NEGATIVE (NEGATIVE) URINE BLOOD NEGATIVE (NEGATIVE) URINE LEUK ESTERASE NEGATIVE (NEGATIVE) URINE RBC NONE SEEN rbc/hpf (0-1) URINE WBC NONE SEEN wbc/hpf (0-1) URINE EPITHELIAL CELLS NONE SEEN EPI/hpf (0-5) URINE BACTERIA NONE SEEN (NONE SEEN) URINE COMMENT CULT NOT INDICATED URINE CULTURES ARE SET-UP BASED ON THE FOLLOWING CRITERIA:POSITIVE NITRITEPOSITIVE LEUKOCYTE ESTERASEGREATER THAN 10 WHITE BLOOD CELLSMODERATE (2+) OR GREATER BACTERIA CBC w Diff: (ALANNA: 08/18/2016 12:20) ( [facility] 08/18/2016 12:38) Final results Test Result Flag Units (Reference) WHITE BLOOD COUNT 5.5 K/uL (4.5-11.5) RED BLOOD COUNT 4.00 L M/uL (4.50-5.90) HEMOGLOBIN 11.9 L gm/dL (13.5-17.5) HEMATOCRIT 36.1 L % (41.0-53.0) MEAN CELL VOLUME 90 fL (80-100) MEAN CORPUSCULAR HGB 30 pg (26-34) MEAN CORPUSCULAR HGB CONC 33 g/dL (31-37) RED CELL DISTRIBUTION WIDTH 15.0 H % (11.6-14.8) PLATELET COUNT 124 L K/uL (150-400) NEUTROPHIL % 77.1 H % (50-75) LYMPH % 17.6 L % (25-40) MONO % 3.3 % (3-14) EOSINOPHIL % 1.8 % (0-4) BASOPHIL % 0.2 % (0-2) PT with INR: (ALANNA: 08/18/2016 12:20) ( [facility] 08/18/2016 12:46) Final results Test Result Flag Units (Reference) INR 1.0 (0.8-1.2) Low Intensity Therapy: INR 1.5-2.0 PT range 18.5-23.1Mod.Intensity Therapy: INR 2.0-3.0 PT range 23.1-31.5High Intensity Therapy: INR 2.5-3.5 PT range 27.4-35.5High Intensity Therapy 2: INR 3.0-4.0 PT range 31.5-39.3 APTT 31 SECONDS (24-34) CMP: (ALANNA: 08/18/2016 12:20) ( [facility] 08/18/2016 12:51) Final results Test Result Flag Units (Reference) GLUCOSE 86 mg/dL (70-110) BUN 15 mg/dL (7-18) CREATININE 0.8 mg/dL (0.6-1.3) Estimated GFR >60 mL/min Estimated GFR- >60 mL/min Note: Persistent reduction over 3 months in eGFR<60 mL/min/1.73 m2 defines CKD. Patients with eGFR values>=60 mL/min/1.73 m2 may also have CKD if evidence ofpersistent proteinuria. Additional information may be foundat www.kidney.org. SODIUM 141 mmol/L (136-145) POTASSIUM 4.3 mmol/L (3.5-5.1) CHLORIDE 106 mmol/L (98-107) CARBON DIOXIDE 30 mmol/L (21-32) CALCIUM 8.1 L mg/dL (8.5-10.1) TOTAL PROTEIN 6.8 g/dL (6.4-8.2) ALBUMIN 3.0 L g/dL (3.3-5.0) BILIRUBIN, TOTAL 0.5 mg/dL (0.0-1.0) ALKALINE PHOSPHATASE 86 U/L (46-116) AST (SGOT) 19 U/L (15-37) ALT (SGPT) 15 U/L (12-78) LIPASE 93 U/L (73-393) AMYLASE 84 U/L (25-115) CPK 69 U/L (24-260) TROPONIN I <0.05 L ng/mL (0.00-1.5) TROPONIN REFERENCE RANGE:<0.1 NEGATIVE0.1-1.5 INDETERMINANT>1.5 POSITIVE . PROGRESS AND PROCEDURES Course of Care: Patient is stable. Patient/family counseled. Old medical records reviewed. Disposition: Discharged. Condition: stable. CLINICAL IMPRESSION Syncope. Volume depletion with hypotension and hypovolemia. INSTRUCTIONS Drink plenty of fluids. Warnings: Further evaluation is necessary. GENERAL WARNINGS: Return or contact your physician immediately if your condition worsens or changes unexpectedly, if not improving as expected, or if other problems arise. Your Current Medications: CONTINUE TAKING THE FOLLOWING MEDICATIONS: Acetaminophen Oral : 650 mg, prn. Amantadine HCl Oral : 100 mg 2x a day. ASA Oral : 81 mg daily. Atorvastatin Calcium Oral : 80 mg daily. Biscolax Rectal : prn. Cholecalciferol Oral : Tablet 2000 unit, 1 tablet daily. Fludrocortisone Acetate Oral : Tablet 0.1 mg, 1 tablet daily. Metoprolol Tartrate Oral : Tablet 25 mg, 1/2 tablet 2 times daily. Milk of Magnesia Oral : 30 ml, prn. Nitroglycerin Sublingual : Tablet Sublingual 0.4 mg, 1 tablet 3x a day, prn. Garfield 3 Oral : Capsule 1000 mg, 1 capsule daily. Pantoprazole Sodium Oral : 40 mg daily. Pimavaserin* : 34 mg daily. Potassium Oral : 20 mEq daily. Probiotic Oral. Psyllium Oral : 1 packet daily. ROPINIRole HCl Oral : Tablet 2 mg, 1 tablet 5 x daily. Rytary* : 36.25-145 mg - 3 caps 3x a day. Saline enema* : PRN. Sertraline HCl Oral : 50 mg daily. Tamsulosin HCl Oral : Capsule 0.4 mg, 1 capsule daily. Trospium Chloride Oral : Tablet 20 mg, 1 tablet twice daily. Zofran Oral : 4 mg, prn. Follow-up: Follow up with your doctor NOÉ CLEMENTS Friday in two days. Call for an appointment. Understanding of the discharge instructions verbalized by patient. (Electronically signed by Noel Almanza MD 08/18/2016 21:03)
--- NOTE | 2016-08-18 15:52 | ED ORDER SUMMARY ---
..... Patient: URBANO CHANDLER OrderSheet [facility] VisitID: [id number] [address] [place] [address] 80y, M Registration Date/Time: 08/18/2016 ORDER SHEET Weight: 70.3 kg (stated) Allergies: No Known Drug Allergy GENERAL ORDERS: Chest 1V Urgent (12:08/18/2016 Dario JUÁREZ) (Ack 12:11 Dane) (12:24 LWhalen R.N.) Floor Sanding Machine Operator (Continuous) (12:08/18/2016 Dario JUÁREZ) (12:23 LWhalen R.N.) CT Head wo Cont Urgent (12:08/18/2016 Dario JUÁREZ) (Ack 12:11 Dane) (12:24 LWhalen R.N.) CBC w Diff Urgent (12:08/18/2016 Dario JUÁREZ) (Ack 12:11 Dane) (12:24 LWhalen R.N.) CMP Urgent (12:08/18/2016 Dario JUÁREZ) (Ack 12:11 Dane) (12:24 LWhalen R.N.) PT with INR Urgent (12:08/18/2016 Dario JUÁREZ) (Ack 12:11 Dane) (12:24 LWhalen R.N.) PTT Urgent (12:08/18/2016 Dario JUÁREZ) (Ack 12:11 Dane) (12:24 LWhalen R.N.) Amylase Urgent (12:08/18/2016 Dario JUÁREZ) (Ack 12:11 Dane) (12:24 LWhalen R.N.) Lipase Urgent (12:08/18/2016 Dario JUÁREZ) (Ack 12:11 Dane) (12:24 LWhalen R.N.) CPK Urgent (12:08/18/2016 Dario JUÁREZ) (Ack 12:11 Dane) (12:24 LWhalen R.N.) Troponin-I Urgent (12:08/18/2016 aDrio JUÁREZ) (Ack 12:11 Dane) (12:24 John R.N.) Pulse oximeter (12:10 08/18/2016 Dario JUÁREZ) (12:23 John R.N.) EKG - ER Stat (12:10 08/18/2016 Dario JUÁREZ) (12:21 PWeiler ER Tech1) Vitals - Orthostatic (12:10 08/18/2016 Dario JUÁREZ) (12:23 LWcory R.N.) UA-Culture if indicated Urgent (14:48 08/18/2016 Isra Prajapati.N. verbal order read back to Dario JUÁREZ) (14:48 Isra R.N.) MEDICATION ORDERS: IV FLUIDS: IV Saline Lock (12:10 08/18/2016 Dario JUÁREZ) (12:24 John R.N.) IV#2 NS : initial bolus none -, then 500 mL/hr (NOW) (13:49 08/18/2016 Isra Salgado verbal order read back to Dario JUÁREZ) (13:51 Isra R.N.) ORDER SHEET NOTES: [Electronically signed by Chris Granado R.N. (19:02 08/18/2016)] [Electronically signed by Noel Almanza MD (21:03 08/18/2016)] [Electronically locked/signed by Chris Granado R.N. (19:02 08/18/2016)]
--- NOTE | 2016-08-18 15:52 | ED ORDER SUMMARY ---
..... Patient: URBANO CHANDLER OrderSheet [facility] VisitID: [id number] [address] [place] [address] 80y, M Registration Date/Time: 08/18/2016 ORDER SHEET Weight: 70.3 kg (stated) Allergies: No Known Drug Allergy GENERAL ORDERS: Chest 1V Urgent (12:08/18/2016 Dario JUÁREZ) (Ack 12:11 Dane) (12:24 LWhalen R.N.) Administrative Fellow (Continuous) (12:08/18/2016 Dario JUÁREZ) (12:23 LWhalen R.N.) CT Head wo Cont Urgent (12:08/18/2016 Dario JUÁREZ) (Ack 12:11 Dane) (12:24 LWhalen R.N.) CBC w Diff Urgent (12:08/18/2016 Dario JUÁREZ) (Ack 12:11 Dane) (12:24 LWhalen R.N.) CMP Urgent (12:08/18/2016 Dario JUÁREZ) (Ack 12:11 Dane) (12:24 LWhalen R.N.) PT with INR Urgent (12:08/18/2016 Dario JUÁREZ) (Ack 12:11 Dane) (12:24 LWhalen R.N.) PTT Urgent (12:08/18/2016 Dario JUÁREZ) (Ack 12:11 Dane) (12:24 LWhalen R.N.) Amylase Urgent (12:08/18/2016 Dario JUÁREZ) (Ack 12:11 Dane) (12:24 LWhalen R.N.) Lipase Urgent (12:08/18/2016 Dario JUÁREZ) (Ack 12:11 Dane) (12:24 LWhalen R.N.) CPK Urgent (12:08/18/2016 Dario JUÁREZ) (Ack 12:11 Dane) (12:24 LWhalen R.N.) Troponin-I Urgent (12:08/18/2016 Dario JUÁREZ) (Ack 12:11 Dane) (12:24 John R.N.) Pulse oximeter (12:10 08/18/2016 Dario JUÁREZ) (12:23 John R.N.) EKG - ER Stat (12:10 08/18/2016 Dario JUÁREZ) (12:21 PWeiler ER Tech1) Vitals - Orthostatic (12:10 08/18/2016 Dario JUÁREZ) (12:23 LWcory R.N.) UA-Culture if indicated Urgent (14:48 08/18/2016 Isra Prajapati.N. verbal order read back to Dario JUÁERZ) (14:48 Isra R.N.) MEDICATION ORDERS: IV FLUIDS: IV Saline Lock (12:10 08/18/2016 Dario JUÁREZ) (12:24 John R.N.) IV#2 NS : initial bolus none -, then 500 mL/hr (NOW) (13:49 08/18/2016 Isra Salgado verbal order read back to Dario JUÁREZ) (13:51 Isra R.N.) ORDER SHEET NOTES: [Electronically signed by Chris Granado R.N. (19:02 08/18/2016)] [Electronically signed by Noel Almanza MD (21:03 08/18/2016)] [Electronically locked/signed by Chris Granado R.N. (19:02 08/18/2016)]
--- NOTE | 2016-08-18 15:52 | ED NURSING NOTES ---
Clinical Report - Nurses [facility] [address] [place] [address] 08/18/2016 10:56 Patient: URBANO CHANDLER TRIAGE Triage time 11:Aug 18 2016. Acuity: LEVEL 3. Chief Complaint: (syncopy no momeory of what happened). JAYA COMA SCORE: Jaya Coma Scale: 15- eyes open spontaneously (4); best verbal response- oriented x 4 (5); best motor response- obeys commands (6). --11:20 Kenji Paniagua R.N. 11:15 08/18/16. BP: 121/74. HR: 81. RR: 20. O2 saturation: 96%. Temp: 97.7 F. Pain level now 0/10. --11:20 Kenji Paniagua R.N. Weight: 70.3 kg stated. Height/Length: 70 inches Per Patient. BMI: 22.2. --11:19 Kenji Paniagua R.N. Medications Acetaminophen Oral 650 mg, as needed. Amantadine HCl Oral 100 mg, 2x a day. ASA Oral 81 mg, daily. Atorvastatin Calcium Oral 80 mg, daily. Biscolax Rectal, as needed. Cholecalciferol Oral (Tablet 2000 unit) 1 tablet, daily. Fludrocortisone Acetate Oral (Tablet 0.1 mg) 1 tablet, daily. Metoprolol Tartrate Oral (Tablet 25 mg) 1/2 tablet, 2 times daily. Milk of Magnesia Oral 30 ml, as needed. Nitroglycerin Sublingual (Tablet Sublingual 0.4 mg) 1 tablet, 3x a day as needed. Madison 3 Oral (Capsule 1000 mg) 1 capsule, daily. Pantoprazole Sodium Oral 40 mg, daily. Pimavaserin 34 mg, daily. Potassium Oral 20 mEq, daily. Probiotic Oral. Psyllium Oral 1 packet, daily. ROPINIRole HCl Oral (Tablet 2 mg) 1 tablet, 5 x daily. --11:18 Kenji Paniagua R.N. Rytary 36.25-145 mg - 3 caps, 3x a day. Saline enema, PRN. Sertraline HCl Oral 50 mg, daily. Tamsulosin HCl Oral (Capsule 0.4 mg) 1 capsule, daily. Trospium Chloride Oral (Tablet 20 mg) 1 tablet, twice daily. Zofran Oral 4 mg, as needed. --11:18 Kenji Paniagua R.N. Allergies No Known Drug Allergy. --11:18 Kenji Paniagua R.N. History Arrived by EMS. Historian: patient. Accompanied by family. This started just prior to arrival. ( Patient was in a wheelchair at [facility] at his half-way and he passed out while sitting witnesses state for around 2 min. 911 called and they stated BP was low line was started 300 ml given and BP returned to normal. Patient has no memory of what happened.). No fever, weakness, cough, difficulty breathing or skin rash. Denies muscle aches. Treatment HAND REAMER: None. PAST MEDICAL HX: Heart disease. No history of diabetes mellitus, hypertension or lung disease. Immunizations: up-to-date. SOCIAL HX: Never smoker. Regular alcohol use; consumes one glass of wine daily. No drug use. SELF HARM ASSESSMENT: A self harm assessment was performed. The patient answered "no" to the question "Have you recently felt down, depressed, or hopeless?" and "Do you have thoughts of harming or killing yourself?". FALL RISK ASSESSMENT: Fall risk assessment completed. No fall risk identified. NUTRITIONAL RISK ASSESSMENT: The nutritional risk assessment revealed no deficiencies. FUNCTIONAL ASSESSMENT: Functional assessment: no impairments noted. LEARNING NEEDS ASSESSMENT: The learning needs assessment revealed no barriers. ABUSE ASSESSMENT: Abuse assessment: (yes) The patient was asked "Do you feel safe in your home?". SKIN INTEGRITY ASSESSMENT: Skin integrity risk assessment completed. No skin integrity risk identified. --11:20 Kenji Paniagua R.N. PROBLEMS: Fall. Nausea. Benign Prostatic Hypertrophy. Orthostatic hypotension. Depression. Vit D deficency. Vit B deficiency. Hypokalemia. Sepsis. C. Difficile Colitis. CVA - Cerebrovascular Accident. Pressure Ulcer. Wound to rt foot . Constipation. Hypovolemia. Hypotension. Syncope. Renal Insufficiency. UTI - Urinary Tract Infection. Urinary Retention. Immunizations. Hypercholesterolemia. Parkinson's Disease. Hypertension. --11:19 Kenji Paniagua R.N. ADDITIONAL SURGERIES: Hernia Repair. 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 Vasectomy. --11:19 Kenji Paniagua R.N. Interventions ID band on patient. --11:20 Kenji Paniagua R.N. PHYSICAL ASSESSMENT Ambulatory to room. GENERAL / NEURO / PSYCH: Alert. Oriented X 4. Appears in no acute distress. HEENT: Pupils equal, round and reactive to light. No facial asymmetry noted. Mucous membranes are pink. RESPIRATORY: Respirations not labored. Chest nontender. Breath sounds within normal limits. CVS: Normal sinus rhythm noted. Capillary refill less than 2 seconds. Pulses within normal limits. GI / : ( Yesterday had a normal BM). Abdomen soft and nontender and normal bowel sounds. SKIN: Skin intact. Skin is warm and dry. Normal skin turgor. --11:21 Kenji Paniagua R.N. NURSING PROGRESS NOTES The initial plan of care for this patient includes an assessment with efforts to address patient positioning, appropriate ambient lighting and comfortable environmental temperature. athletic monitor, pulse oximeter and NIBP monitor placed on patient. Patient gowned. Reassurance given. Call light placed in reach. Side rails up x 1. Bed placed in lowest position. Brakes of bed on. --11:22 Kenji Paniagua R.N. 10:57 08/18/2016 Site #1 started prior to arrival by EMS via IV in the left forearm with an 20g angiocath, with aseptic technique and good blood return; one attempt. Saline lock flushed with 10 mL saline. --11:22 Kenji Paniagua R.N. EKG time: (1218). EKG was ordered, performed by [facility] and shown to the ED physician. --12:22 Richard Canada ER Tech1 12:26 08/18/2016 Site #2 started via IV in the right hand with an 20g angiocath, with aseptic technique and good blood return; one attempt. Blood drawn: rainbow set. Labeled in the presence of the patient. Saline lock flushed with 10 mL saline. --12:36 Chris Granado R.N. 12:40 08/18/16. BP: 113/71. HR: 80. RR: 20. O2 saturation: 94%. Additional comments: Orthostatic vitals done, sitting vitals were BP 79/44, HR 88, Sat 97%. --12:42 Richard Canada, JENNIFER Tech1 13:00 08/18/16. BP: 111/59. HR: 86. RR: 14. O2 saturation: 97% on room air. Pain level now: 0/10. --13:49 Chris Granado R.N. <<STRICKEN ENTRY-- 13:00 08/18/2016 Started bag #1 1000 mL IV Fluids IV#2 NS (Saline); at 500 mL/hr over 2 hour(s) via site #1 via IV pump. Allergies verified and confirmed 5 rights. IV patency established. IV site checked: no pain, redness, or swelling. IV flushed thoroughly pre- and post-medication administration. --13:51 Chris Granado R.N. --END STRIKE>> Correction. --19:00 Chris Granado R.N. 13:00 08/18/16. BP: 111/59. HR: 86. RR: 14. O2 saturation: 97% on room air. Pain level now: 0/10. --14:47 Chris Granado R.N. 14:40 08/18/16. Patient ID band checked for patient name, birthdate and medical record number: patient confirmed. Instructions provided to collect clean catch urine and patient verbalized understanding. Catheterized urine collected with return of yellow-colored cloudy urine; odor is normal; sample sent to lab for urinalysis and culture. Specimen labeled in the presence of the patient. --14:47 Chris Granado R.N. 15:40 - 1555 pt ncontinent of large amount of soft brown stool, complete bed change , attends changed twice, stool is oozing out. --16:02 Christal Hernandez R.N. 17:02. Patient hygiene performed: received partial bath. Patient is incontinent of stool. Stool described as formed. Changed patient incontinence pads and diaper. --17:03 Christal Hernandez R.N. 13:00 08/18/2016 Started bag #2 1000 IV Fluids IV#2 NS (Saline); at 500 mL/hr over 2 hour(s) via site #1 via IV pump. Allergies verified and confirmed 5 rights. IV patency established. IV site checked: no pain, redness, or swelling. IV flushed thoroughly pre- and post-medication administration. --19:00 Chris Granado R.N. 15:01 08/18/2016 IV Fluids IV#2 NS Discontinued: bag #2 infused. Total amount infused: 1000 mL. IV patency established. IV site checked: no pain, redness, or swelling. IV flushed thoroughly. --19:01 Chris Granado R.N. 17:30 08/18/2016 Site #1 removed (pt pulled out the IV trying to get out of bed). --18:35 Christal Hernandez R.N. 18:20 08/18/2016 Site #2 removed upon discharge. Catheter intact. Bandaid applied. --19:02 Chris Granado R.N. DISPOSITION / DISCHARGE Departure time: 1825. --18:53 Chris Granado R.N. 18:20 08/18/16. BP: 114/60. HR: 87. RR: 18. O2 saturation: 97% on room air. Temp: 98.7 F (oral). Pain level now: 0/10. --18:56 Chris Granado R.N. 18:25. Fall risk assessment completed. Risk factors identified include patient age greater than 65 years and impairment of mobility. Fall interventions initiated. Patient placed in wheelchair. Learning barriers present. Ability to learn limited by dementia. Learning barriers note: patient. Discharge instructions provided and reviewed with the spouse. Reviewed medication(s) (continue your usually prescribed medications). Reviewed referral to family practice. Patient verbalized understanding. Written instructions provided in [place]ib[place]. The patient was discharged by the physician. He was discharged home and accompanied by spouse. He left the Emergency Department in a wheelchair and via private vehicle. Spouse driving. --18:59 Chris Granado R.N. Locked/Released at 08/18/2016 19:02 by Chris Granado R.N.
--- NOTE | 2016-08-18 21:03 | ED DISCHARGE INSTRUCTIONS ---
Patient: URBANO CHANDLER General Instructions [facility] VisitID: [id number] [address] [place] [address] 80y, M Registration Date/Time: 08/18/2016 Syncope. Volume depletion with hypotension and hypovolemia. INSTRUCTIONS Drink plenty of fluids. Warnings: Further evaluation is necessary. GENERAL WARNINGS: Return or contact your physician immediately if your condition worsens or changes unexpectedly, if not improving as expected, or if other problems arise. Your Current Medications: CONTINUE TAKING THE FOLLOWING MEDICATIONS: Acetaminophen Oral : 650 mg, prn. Amantadine HCl Oral : 100 mg 2x a day. ASA Oral : 81 mg daily. Atorvastatin Calcium Oral : 80 mg daily. Biscolax Rectal : prn. Cholecalciferol Oral : Tablet 2000 unit, 1 tablet daily. Fludrocortisone Acetate Oral : Tablet 0.1 mg, 1 tablet daily. Metoprolol Tartrate Oral : Tablet 25 mg, 1/2 tablet 2 times daily. Milk of Magnesia Oral : 30 ml, prn. Nitroglycerin Sublingual : Tablet Sublingual 0.4 mg, 1 tablet 3x a day, prn. [place] 3 Oral : Capsule 1000 mg, 1 capsule daily. Pantoprazole Sodium Oral : 40 mg daily. Pimavaserin* : 34 mg daily. Potassium Oral : 20 mEq daily. Probiotic Oral. Psyllium Oral : 1 packet daily. ROPINIRole HCl Oral : Tablet 2 mg, 1 tablet 5 x daily. Rytary* : 36.25-145 mg - 3 caps 3x a day. Saline enema* : PRN. Sertraline HCl Oral : 50 mg daily. Tamsulosin HCl Oral : Capsule 0.4 mg, 1 capsule daily. Trospium Chloride Oral : Tablet 20 mg, 1 tablet twice daily. Zofran Oral : 4 mg, prn. Follow-up: Follow up with your doctor NOÉ CLEMENTS Friday in two days. Call for an appointment. Understanding of the discharge instructions verbalized by patient. ADDITIONAL INFORMATION Fainting:Uncertain Cause Fainting (syncope) is a temporary loss of consciousness ("passing out"). It occurs when blood flow to the brain is reduced. Near-fainting ("near-syncope") is very similar to fainting, but you do not fully "pass out". The common minor causes of fainting include: sudden fear, pain, nausea, emotional stress and overexertion. Suddenly standing up after sitting or lying for a long time can also cause fainting. The more serious causes for fainting are due to either a very slow or very fast or very slow heart beat ("arrhythmia"), other types of heart disease, dehydration, blood loss, seizure, stroke or ruptured blood vessel in the brain. Taking too much high blood pressure medicine can also cause low blood pressure and fainting. The exact cause of your episode is not certain. However, the tests today did not show any of the serious causes of fainting. Sometimes further testing is needed to find out if a serious problem exists. Therefore, it is important that you follow-up with your doctor as advised. Home Care: 1) Rest today. You may resume your normal activities when you are feeling back to normal. It is best to remain with someone who can check on you for the next 24 hours to watch for another episode of fainting. 2) If you become light-headed or dizzy, lie down immediately or sit with your head between your knees. 3) Because we do not know the exact cause of your near fainting spell, it is possible for another spell to occur without warning. Therefore, do not drive a car or operate dangerous equipment, do not take a bath alone (use a shower instead) and do not swim alone until your doctor says that you are no longer in danger of having another fainting spell. Follow Up with your doctor as advised. Get Prompt Medical Attention if any of the following occur: -- Another fainting spell occurs, which is not explained by the common causes listed above -- Chest, arm, neck, jaw, back or abdominal pain -- Shortness of breath -- Severe headache or seizure -- Blood in vomit, stools (black or red color) -- Unexpected vaginal bleeding -- Palpitations (very rapid or very slow or irregular heart beat) -- Signs of stroke: Weakness of an arm or leg or one side of the face Difficulty with speech or vision Extreme drowsiness, confusion, dizziness or fainting Dehydration (Adult) Dehydration occurs when your body loses too much fluid. This may be the result of vomiting a lot or from diarrhea,sweating a lot, or a high fever. It may also happen if you dont drink enough fluid when youre sick. Misuse of diuretics (water pills) can also be a cause. Symptoms include thirst and feeling dizzy, weak, fatigued, or very drowsy. The diet described below is usually enough to treat most cases. Sometimes you may needmedicine. Home Care Follow these guidelines for home care: Drink at least 12 8-ounce glasses of fluid every day to overcome the dehydration. Fluid may include water; orange juice; lemonade; apple, grape, and cranberry juice; clear fruit drinks; electrolyte replacement and sports drinks; and teas and coffee without caffeine. If you have been diagnosed with a kidney disease, ask your doctor how much and what types of fluids you should drink to prevent dehydration. If you have kidney disease, drinking too much fluid can cause it build up in the your body and be dangerous to your health. If you have fever, muscle aching, or headache from a viral syndrome, you may useacetaminophen or ibuprofen, unless another medicine was prescribed for this.If you have chronic liver or kidney disease or ever had a stomach ulcer or GI bleeding, talk with your doctor before using these medicines. Don't take aspirin if you are younger than 18 and are ill with a fever.Aspirin raises the chance forsevere liver injury. Follow-up care Follow up with your health care provider if you don't get better in the next 24 to 48 hours. When to seek medical care Get prompt medical attention if any of theseoccur: Continued vomiting (cant keep liquids down) Frequent diarrhea (more than 5 times a day); blood (red or black color) or mucus in diarrhea Blood in vomit or stool Swollen abdomen or increasing abdominal pain Weakness, dizziness, or fainting Unusually drowsy or confused Reduced urine output or extreme thirst Fever of 100.4 F (38 C) oral or higher that does not get better with fever medication You have been given the following additional information: Syncope, Unk Cause Dehydration (Adult) (Electronically signed by Noel Almanza MD 08/18/2016 21:03)
--- NOTE | 2016-08-18 21:03 | ED MAR SUMMARY ---
..... Medication Administration Record [facility] [address] [place] [address] Patient: URBANO CHANDLER Visit ID: [id number] 80y, M Weight: 70.3 kg Height/Length: 70 in BMI: 22.2 ALLERGIES: No Known Drug Allergy Start 13:00 08/18/2016 Chris Granado RMaxineN., Stop 15:01 08/18/2016 Chris Granado RMaxineN. Medication Administered: IV#2 NS (SALINE), Dose: IV Fluids over 2 hour(s), Rate: 500 mL/hr, Dispensed: 1000 mL bag, Site: #1 left forearm. Medication Ordered: IV#2 NS : initial bolus none -, then 500 mL/hr (NOW).
--- NOTE | 2016-08-18 21:03 | ED MED RECONCILIATION SUMMARY ---
Patient: URBANO CHANDLER Medication Reconciliation Report [facility] VisitID: [id number] [address] [place] [address] 80y, M Registration Date/Time: 08/18/2016 Weight: 70.3 kg Height/Length: 70 in. BMI: 22.2 ALLERGIES: No Known Drug Allergy The patient's Home Medications are listed below: CONTINUE TAKING THE FOLLOWING MEDICATIONS: Acetaminophen Oral 650 mg Amantadine HCl Oral 100 mg, 2x a day ASA Oral 81 mg, daily Atorvastatin Calcium Oral 80 mg, daily Biscolax Rectal Cholecalciferol Oral (2000 unit) 1 tablet, daily Fludrocortisone Acetate Oral (0.1 mg) 1 tablet, daily Metoprolol Tartrate Oral (25 mg) 1/2 tablet, 2 times daily Milk of Magnesia Oral 30 ml Nitroglycerin Sublingual (0.4 mg) 1 tablet, 3x a day [place] 3 Oral (1000 mg) 1 capsule, daily Pantoprazole Sodium Oral 40 mg, daily Pimavaserin 34 mg, daily Potassium Oral 20 mEq, daily Probiotic Oral Psyllium Oral 1 packet, daily ROPINIRole HCl Oral (2 mg) 1 tablet, 5 x daily Rytary 36.25-145 mg - 3 caps, 3x a day Saline enema, PRN Sertraline HCl Oral 50 mg, daily Tamsulosin HCl Oral (0.4 mg) 1 capsule, daily Trospium Chloride Oral (20 mg) 1 tablet, twice daily Zofran Oral 4 mg The source(s) of the original Home Medication information: Not obtained. The following Medications were given to the patient in the Emergency Department: IV#2 NS IV Fluids bolus 0, then 500 mL/hr, administered: 08/18/2016 1:00:00 PM The following Medications were prescribed to the patient: None.
--- NOTE | 2016-08-18 21:03 | ED MED RECONCILIATION SUMMARY ---
Patient: URBANO CHANDLER Medication Reconciliation Report [facility] VisitID: [id number] [address] [place] [address] 80y, M Registration Date/Time: 08/18/2016 Weight: 70.3 kg Height/Length: 70 in. BMI: 22.2 ALLERGIES: No Known Drug Allergy The patient's Home Medications are listed below: CONTINUE TAKING THE FOLLOWING MEDICATIONS: Acetaminophen Oral 650 mg Amantadine HCl Oral 100 mg, 2x a day ASA Oral 81 mg, daily Atorvastatin Calcium Oral 80 mg, daily Biscolax Rectal Cholecalciferol Oral (2000 unit) 1 tablet, daily Fludrocortisone Acetate Oral (0.1 mg) 1 tablet, daily Metoprolol Tartrate Oral (25 mg) 1/2 tablet, 2 times daily Milk of Magnesia Oral 30 ml Nitroglycerin Sublingual (0.4 mg) 1 tablet, 3x a day [place] 3 Oral (1000 mg) 1 capsule, daily Pantoprazole Sodium Oral 40 mg, daily Pimavaserin 34 mg, daily Potassium Oral 20 mEq, daily Probiotic Oral Psyllium Oral 1 packet, daily ROPINIRole HCl Oral (2 mg) 1 tablet, 5 x daily Rytary 36.25-145 mg - 3 caps, 3x a day Saline enema, PRN Sertraline HCl Oral 50 mg, daily Tamsulosin HCl Oral (0.4 mg) 1 capsule, daily Trospium Chloride Oral (20 mg) 1 tablet, twice daily Zofran Oral 4 mg The source(s) of the original Home Medication information: Not obtained. The following Medications were given to the patient in the Emergency Department: IV#2 NS IV Fluids bolus 0, then 500 mL/hr, administered: 08/18/2016 1:00:00 PM The following Medications were prescribed to the patient: None.
--- NOTE | 2016-08-18 21:03 | ED MAR SUMMARY ---
..... Medication Administration Record [facility] [address] [place] [address] Patient: URBANO CHANDLER Visit ID: [id number] 80y, M Weight: 70.3 kg Height/Length: 70 in BMI: 22.2 ALLERGIES: No Known Drug Allergy Start 13:00 08/18/2016 Chris Granado RMaxineN., Stop 15:01 08/18/2016 Chris Granado RMaxineN. Medication Administered: IV#2 NS (SALINE), Dose: IV Fluids over 2 hour(s), Rate: 500 mL/hr, Dispensed: 1000 mL bag, Site: #1 left forearm. Medication Ordered: IV#2 NS : initial bolus none -, then 500 mL/hr (NOW).
== END 2016-08-18 18:25 | disposition home or self-care (01) ==
LOC: ED SRH 10:55
DX: R55 Syncope and collapse (principal); E86.1 Hypovolemia; I95.9 Hypotension, unspecified; N28.9 Disorder of kidney and ureter, unspecified; I10 Essential (primary) hypertension; G20 Parkinson's disease; E78.00 Pure hypercholesterolemia, unspecified; Z79.899 Other long term (current) drug therapy; Z79.1 Long term (current) use of non-steroidal anti-inflammatories (NSAID); Z79.82 Long term (current) use of aspirin
CPT/HCPCS: 90004; 90100; 90616; 92235; 92530; 92610; 94001; 94060; 95059